=== PATIENT | male | born 1970 | race Caucasian/White ===

== ENCOUNTER 2017-01-26 15:23 | Emergency (ER) | payer OTHER ==
[2017-01-26 15:27] VITALS: BP 170/97; PULSE 101; RESP 20; TEMP 98.1
[2017-01-26] MEDS ORDERED: ORPHENADRINE 30 MG/ML 2 ML VIAL IM STA (16:00)
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
== END 2017-01-26 16:42 | disposition home or self-care (01) ==
LOC: EC 15:23
DX: G89.29 Other chronic pain (principal); M54.5 Low back pain; I10 Essential (primary) hypertension; F41.9 Anxiety disorder, unspecified; F32.9 Major depressive disorder, single episode, unspecified; Z87.891 Personal history of nicotine dependence; Z79.899 Other long term (current) drug therapy; Z88.6 Allergy status to analgesic agent
CPT/HCPCS: 99283 ×2; 96372 ×2; J2360

== ENCOUNTER 2017-01-27 17:26 | Emergency (ER) | payer OTHER ==
[2017-01-27 17:37] VITALS: BP 157/88; PULSE 68; RESP 20; TEMP 98.1
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
[2017-01-27] MEDS ORDERED: ORPHENADRINE 30 MG/ML 2 ML VIAL IM STA ×2 (17:59→18:04)
== END 2017-01-27 18:17 | disposition home or self-care (01) ==
LOC: EC 17:26
DX: G89.29 Other chronic pain (principal); M54.9 Dorsalgia, unspecified; I10 Essential (primary) hypertension; M19.90 Unspecified osteoarthritis, unspecified site; F32.9 Major depressive disorder, single episode, unspecified; F41.9 Anxiety disorder, unspecified; Z87.891 Personal history of nicotine dependence; Z79.899 Other long term (current) drug therapy; Z88.6 Allergy status to analgesic agent; Z98.890 Other specified postprocedural states
CPT/HCPCS: 99283 ×2; 96372 ×2; J2360

== ENCOUNTER 2017-02-08 10:07 | Day surgery (SDC) | payer OTHER ==
[2017-01-02 09:52] VITALS: BMI 22.1
[~2017-02-08 10:07] MED LIST: LACTATED RINGERS 1,000 ML IV SCH
[2017-02-08 12:00] VITALS: RESP 16; TEMP 97.9
[2017-02-08] MEDS ORDERED: LIDOCAINE 1% 20 ML VIAL (10MG/ML) FOR IV START INTRADERMA ONE (12:15)
[2017-02-08] MEDS ORDERED: TRIAMCINOLONE ACETONIDE 40 MG/ML 1 ML VIAL ONE (12:49)
[2017-02-08] MEDS ORDERED: MIDAZOLAM 2 MG/2 ML VIAL ONE (12:49)
[2017-02-08] MEDS ORDERED: fentaNYL (PF) 50 MCG/ML 2 ML AMP ONE (12:49)
[2017-02-08] MEDS ORDERED: IOHEXOL 180 MG/ML 1 ML ML ONE (12:49)
--- NOTE | 2017-02-08 13:04 | P.PCN ---
Date of Procedure: 02/08/17 Procedure(s) Performed: PREOPERATIVE DIAGNOSIS: 1- Lumbar Degenerative Disc Diseases 2-Lumbar spondylosis with Facet arthropathy without myelopathy POSTOPERATIVE DIAGNOSIS: 1-Lumber Degenerative Disc Diseases 2-Lumbar spondylosis with Facet arthropathy without myelopathy PROCEDURE 1. Lumbar epidural steroid injection under fluoroscopic guidance at the L4-5 level. (Left paramedian approach) 2. Lumbar epidurogram. ANESTHESIA: Local with 1% lidocaine 3 ml and IV sedation with Versed 2 mg , and fentanyle 50 Mcg EBL: Minimal PROCEDURE INDICATION: The patient with low back pain and radiculitis symptoms unresponsive to conservative treatment. Fluoroscopy was used to optimize visualization of the needle placement and to maximize safety. PROCEDURE DESCRIPTION / TECHNIQUE: The patient was seen and identified in the preoperative area. Risks, benefits , complications including but not limited to infections ,bleeding ,allergic reaction to the medications ,nerve damage and not complete pain releife , and alternatives were discussed with the patient. The patient agreed to proceed with the procedure and signed the consent. IV was started, and vital signs were stable. Patient was taken to the OR and time out was completed. The patient was placed in the prone position on procedure table and a pillow was placed under the abdomen to reduce lumbar lordosis. The lumbosacral area was prepped and draped in the usual sterile fashion.ere closely monitored during the procedure. Conscious sedation was used during the procedure to decrease patients anxiety. Vital signs was monitered during the entire procedure. Using anterior-posterior fluoroscopy, the L4-5 interlaminar space was identified and the skin over this site was marked and then infiltrated with 1% lidocaine subcutaneously. Subsequently, a 20-gauge Tuohy epidural needle was inserted and advanced toward the epidural space using the ``Loss of resistance technique and guided by AP and lateral fluoroscopy. The correct needle position in the epidural space was verified with the injection of 2 mL of the water soluble contrast dye Omnipaque 180 contrast and observing an excellent epidurogram with the epidural spread of the dye, after negative aspiration for blood and CSF and in the absence of paresthesias. Again after negative aspiration, a 6 ml mixture containing 80 mg of Kenalog and 2 ml of preservative free Normal Saline, and 2 ml of preservative free lidocaine 1% solution was injected and a washout of epidurogram was seen. Needle was withdrawn intact, skin was cleansed, and bandages were applied. COMPLICATIONS: None DISPOSITION / PLANS: The patient was placed in a supine position and transferred to the recovery area in a stable condition for observation. There was no evidence of lower extremity motor or sensory deficit after the procedure. Patient was discharged from the recovery room after meeting discharge criteria. Home discharge instructions were given to the patient by the staff. The patient was reexamined prior to discharge. The patient will schedule a follow up in the clinic in 2-4 weeks.
[2017-02-08] MEDS ORDERED: IV FLUID CONTINUATION 1,000 ML IV ONE (13:11)
--- NOTE | 2017-02-08 13:17 | FL ---
EXAMINATION TYPE: FL guided pain mgmt statistic DATE OF EXAM: 02/08/2017 1:10 PM CLINICAL HISTORY: Low back pain. TECHNIQUE: Fluoroscopy. COMPARISON: None. FINDINGS: Fluoroscopic guidance was provided during pain relief procedure performed by Dr. Crevantes . A total of 1 seconds of fluoroscopic time was utilized during the procedure and 1 spot image is a cquired. Single Image acquired shows needle localization at L4-L5 epidural space. IMPRESSION: As Above.
[2017-02-08 13:36] VITALS: BP 110/71; PULSE 64
== END 2017-02-08 13:42 | disposition home or self-care (01) ==
LOC: ORPAIN 10:07
PROVIDERS: ATTEND Specialist
DX: M51.16 Intervertebral disc disorders with radiculopathy, lumbar region (principal); M47.26 Other spondylosis with radiculopathy, lumbar region; M46.96 Unspecified inflammatory spondylopathy, lumbar region
CPT/HCPCS: 62323; J2250; J3301; Q9965; J3010

== ENCOUNTER 2017-03-14 10:07 | Day surgery (SDC) | payer OTHER ==
[2017-03-12 12:54] VITALS: BMI 22.1
[2017-03-14 10:27] VITALS: TEMP 98
[2017-03-14] MEDS ORDERED: LACTATED RINGERS 1,000 ML IV ONE (10:31)
[2017-03-14] MEDS ORDERED: LIDOCAINE 1% 20 ML VIAL (10MG/ML) FOR IV START INTRADERMA ONE (10:31)
[2017-03-14] MEDS ORDERED: TRIAMCINOLONE ACETONIDE 40 MG/ML 1 ML VIAL ONE (10:47)
[2017-03-14] MEDS ORDERED: BUPIVACAINE (PF) 0.25% 30 ML VIAL ONE (10:47)
[2017-03-14] MEDS ORDERED: IOHEXOL 180 MG/ML 1 ML ML ONE (10:47)
[2017-03-14] MEDS ORDERED: MIDAZOLAM 2 MG/2 ML VIAL ONE (10:47)
[2017-03-14] MEDS ORDERED: fentaNYL (PF) 50 MCG/ML 2 ML AMP ONE (10:47)
--- NOTE | 2017-03-14 11:05 | P.PCN ---
Date of Procedure: 03/14/17 Preoperative Diagnosis: Lumbar radiculopathy Postoperative Diagnosis: Same as above Procedure(s) Performed: Lumbar epidural steroid injection under fluoroscopic guidance Anesthesia: other (Moderate sedation with IV fentanyl and Versed) Surgeon: Shannon Cloud Pathology: none sent Condition: stable Disposition: PACU Description of Procedure: The patient was seen in preop holding area consent was obtained then he was brought into the procedure room and placed in prone position. Skin was prepped with Betadine 3 and draped in a sterile manner. Lidocaine 1% was used to numb the skin up at the target point that was at the L4 5 level in the right paramedian approach. I used 20-gauge 3-1/2 inch Touhy epidural needle with loss -of-resistance to air to identify the epidural space. There was positive loss- of-resistance to air at about 5 cm from skin negative aspiration for any CSF or blood negative paresthesia. I then injected 2 MLS of Omnipaque which showed typical epidurogram with AP and lateral views of fluoroscopy. Then I injected 40 mg of Kenalog +2 MLS of Marcaine 0.25% +4 MLS of preservative free normal saline to a total volume of 7 MLS in epidural space. Patient tolerated procedure well.
[2017-03-14] MEDS ORDERED: IV FLUID CONTINUATION 700 ML IV ONE (11:10)
--- NOTE | 2017-03-14 11:54 | FL ---
Fluoroscopy INDICATION: Pain FINDINGS: Fluoroscopy time: 6 seconds. Images obtained: 2. IMPRESSIONS: 1. Documentation of fluoroscopy.
[2017-03-14 12:26] VITALS: PULSE 60; RESP 16
[2017-03-14 12:28] VITALS: BP 114/80
== END 2017-03-14 11:50 | disposition home or self-care (01) ==
LOC: ORPAIN 10:07
PROVIDERS: ATTEND Anesthesiology
DX: M54.16 Radiculopathy, lumbar region (principal); Z88.8 Allergy status to other drugs, medicaments and biological substances
CPT/HCPCS: 62323; 99152; J2250; J3301; Q9965; J3010

== ENCOUNTER → 2017-05-08 | Outpatient (CLI) | payer OTHER ==
[2017-05-08 12:24] VITALS: BP 144/90; PULSE 69; RESP 20; TEMP 98.1
--- NOTE | 2017-05-08 13:07 | P.PN ---
Subjective This is follow-up visit for this 47 years old male with a history of chronic low back pain diagnosed with lumbar degenerative disc disease and lumbar spondylosis, essentially with a lumbar epidural steroid injection patient had good pain relief, currently he is complaining of severe neck pain and headache , he had MRI of the cervical spine done more than a year ago and it showed that C5 6 bulging disc disease, he denies any motor or sensory deficits but he reported that his neck pain interfering with his quality of life, and associated with severe headache, he denies any numbness or tingling sensation in the upper or lower extremities, he denies any change in the formal motor , no fever or night sweats, he use ultram 100 mg 3 times a day. He denies any side effect of the medication Objective - Vital Signs Vital signs: Vital Signs Temp 98.1 F 05/08/17 12:16 Pulse 69 05/08/17 12:16 Resp 20 05/08/17 12:16 BP 144/90 05/08/17 12:16 Pulse Ox 99 05/08/17 12:16 Intake & Output 05/07/17 05/08/17 05/08/17 18:59 06:59 18:59 Weight 67.132 kg - Exam Physical Examinations : 1-Constitutiona : Cooperative , not in acute distress . 2-HEENT : nech ; supple , no Lymphadenopathy , normal thyroid size . eyes : no ptosis , no icterus, no photophobia . ENT : normal of hearing , normal oropharynx , no Thrush . 3- Respiratory : Chest clear to auscultations Bilaterally , no wheezing , no Rhonchi . 4- Cardiovascular : regular rate and rhythem , S1 , S2 , no S3 , no S4. 5- Gastrointestinal : abdomen soft no tenderness , bowel sounds positive all four quadrents , no organomegally . 6- Genitourinary : Defferred . 7- neurologic : Cranial nerve II to XII intact , no focal neurological deffecit . 8-psychatric : alert , oriented X 3 , appropriate affect , intact judgment and insight . 9-Lymphatic : no Lymphadenopathy . 10- musculoskeltal : cervical spine = motor stregnth in the deltoid and biceps, motor stregnth biceps and the wrist extensors (C6) . motor stregnth in the triceps muscle . deep tendon reflexes normal at the biceps , l normal at Brachioradialis normal at the triceps positive cervical facet loading test . , Normal sensation in the upper extremity Lumber spine = normal moter stegnth lower extremities ,thigh and legs .03/23 Assessment and Plan Plan: Assessment and plan= chronic low back pain secondary to lumbar degenerative disc disease , lumbar spondylosis with lumbar facet arthropathy Neck pain secondary to cervical degenerative disc disease, and patient had clinical finding of cervical spondylosis with cervical facet arthropathy Patient had old MRI , it showed cervical bulging disc disease at C5 6 and C6 7, patient already scheduled to have MRI of the cervical spine by the end of the month, we will review the MRI report when it is available, patient will follow up in the pain clinic in a few weeks, discussed the results of the MRI report Patient should continue his current pain medication Ultram 100 mg every 4-6 hours when necessary,he is getting prescription refill from Dr. Lewis Time with Patient: Less than 30
== END ==
LOC: PNWHC3 11:57
PROVIDERS: ATTEND Specialist
DX: M51.36 Other intervertebral disc degeneration, lumbar region (principal); M47.816 Spondylosis without myelopathy or radiculopathy, lumbar region; M46.86 Other specified inflammatory spondylopathies, lumbar region; M50.30 Other cervical disc degeneration, unspecified cervical region; M47.812 Spondylosis without myelopathy or radiculopathy, cervical region; M46.82 Other specified inflammatory spondylopathies, cervical region; M50.222 Other cervical disc displacement at C5-C6 level
CPT/HCPCS: 99211

== ENCOUNTER → 2017-05-15 | Outpatient (CLI) | payer OTHER ==
--- NOTE | 2017-05-15 23:29 | MR ---
EXAMINATION TYPE: MR cervical spine wo con DATE OF EXAM: 05/15/2017 COMPARISON: 07/22/2014 HISTORY: 47-year-old male with neck pain for 12 months, cervicalgia. TECHNIQUE: Multiplanar, multisequence images of the cervical spine were acquired. FINDINGS: No craniocervical junction abnormality, predental space widening, or prevertebral soft tissue swellin g. Straightening of the upper cervical lordosis but with preserved alignment. No suspicious bone marrow replacement. There is mild multilevel disc desiccation and posterior disc bulging. The disc desiccation appears to have slightly progressed from 2013 this 70 posterior disc bulges are similar. Ligamentum flavum thickening in the mid to lower cervical spine appears to have increased. Additional scattered facet and uncovertebral joint arthropathy is present. At C2-C3, no significant canal or foraminal stenosis. At C3-C4, mild facet arthropathy and mild right-sided uncovertebral joint degenerative change. This m ildly narrows the right-sided neuroforamen. No significant spinal canal stenosis. At C4-C5, mild broad-based posterior disc bulge with contiguous uncovertebral joint degenerative mckeon ge and facet arthropathy. This minimally narrows the bilateral neuroforamina and contributes to a mil d narrowing of the spinal canal that may be minimally increased. No significant cord contact or cord deformity here. At C5-C6, left paracentral disc osteophyte complex with contiguous uncovertebral joint arthropathy. B ilateral facet arthropathy is also present. Changes result in [id number] left neuroforaminal s tenosis and mild narrowing of the spinal canal similar to slightly accentuated due to minimally incre ased ligamentum flavum thickening. At C6-C7, mild posterior bulging disc and mild ligamentum flavum thickening. Additional mild facet an d uncovertebral joint degenerative change. This minimally narrows the bilateral neuroforamen and mini kanika impresses onto the thecal sac without significant spinal canal stenosis. At C7-T1, there is facet degenerative change minimally narrowing the right-sided neuroforamen. No spi nal canal stenosis. There are artifacts projecting over the cord due to motion without definite cord signal abnormality. No prevertebral or paravertebral soft tissue abnormality. IMPRESSION: 1. Mild to moderate multilevel degenerative disc disease shows some progressive disc desiccation from 2013. 2. Mild narrowing of the spinal canal at C4-C5 and C5-C6 may be minimally increased due to the presen ce of small disc osteophyte complexes/disc bulges and slight increasing thickening of the ligamentum flavum. No canal compromise or cord compression. 3. Additional scattered facet and uncovertebral joint arthropathy. The greatest narrowing is mild to moderate on the left at C5-C6.
== END | disposition home or self-care (01) ==
LOC: RADMRIMAIN 21:09
PROVIDERS: ATTEND Family Medicine
DX: M48.02 Spinal stenosis, cervical region (principal); M50.30 Other cervical disc degeneration, unspecified cervical region; M46.82 Other specified inflammatory spondylopathies, cervical region; M24.28 Disorder of ligament, vertebrae
CPT/HCPCS: 72141

== ENCOUNTER → 2017-06-19 | Outpatient (CLI) | payer OTHER ==
[2017-06-19 14:34] VITALS: BP 119/83; PULSE 98; RESP 18
--- NOTE | 2017-06-19 14:49 | P.PN ---
Progress Note - Text This is a 47-year-old male with neck pain due to cervical spondylosis. The pain is in both side of his neck left is more intense than the right side pain however the pain does not radiate down the arms occasionally he feels some tingling in the arms but it is not a constant complaint. Most of his pain is in the lower neck area and occasionally gets headaches. The patient's pain got worse after a chiropractor manipulation a few days ago with stiffness in his upper back muscles. I told the patient that most likely his muscle stiffness will get better over the next week or so. In regards to his axial neck pain I will schedule him to have cervical medial branch block on the C 5,6 and 7 levels bilaterally under fluoroscopic guidance. The patient is to continue using tramadol that he gets from Dr. Lewis.
== END ==
LOC: PNWHC3 14:17
PROVIDERS: ATTEND Anesthesiology
DX: M48.02 Spinal stenosis, cervical region (principal); M50.30 Other cervical disc degeneration, unspecified cervical region; M47.812 Spondylosis without myelopathy or radiculopathy, cervical region; M46.82 Other specified inflammatory spondylopathies, cervical region
CPT/HCPCS: 99211

== ENCOUNTER 2017-07-12 10:07 | Day surgery (SDC) | payer OTHER ==
[2017-07-11 09:14] VITALS: BMI 21.9
[2017-07-12] MEDS ORDERED: LIDOCAINE 1% 20 ML VIAL (10MG/ML) FOR IV START INTRADERMA ONE (10:13)
[2017-07-12 10:20] VITALS: RESP 16; TEMP 97.9
[2017-07-12] MEDS ORDERED: IV FLUID CONTINUATION 1,000 ML IV ONE (11:05)
--- NOTE | 2017-07-12 11:13 | P.PCN ---
Date of Procedure: 07/12/17 Preoperative Diagnosis: Postoperative Diagnosis: Procedure(s) Performed: PREOPERATIVE DIAGNOSIS: Cervical Spondylosis with Facet Arthropathy.without myelopathy POSTOPERATIVE DIAGNOSIS: Cervical Spondylosis Facet Arthropathy. Without myelopathy PROCEDURES: Diagnostic Bilateral. C5,6,7 medial branchs block with fluoroscopic guidance ANESTHESIA: Local with 1% lidocaine; IV sedation with Versed. EBL: Minimal PROCEDURE INDICATION: The patient with neck pain secondary to cervical arthropathy unresponsive to more conservative treatments. PROCEDURE DESCRIPTION / TECHNIQUE: The patient was seen and identified in the preoperative area. Risks, benefits, complications, and alternatives were discussed with the patient, the patient agreed to proceed with the procedure and signed the consent. IV was started. Vital signs remained stable throughout the procedure. Patient was taken to the OR and time out was completed. The patient was placed in the supine position on the procedure table. . The cervical area was prepped with chloraprep and draped in the usual sterile fashion. Critical pause was taken. Vital signs were closely monitored during the procedure. Conscious sedation was used during the procedure to decrease patients anxiety. Using cross-table lateral fluoroscopy, the centroid of the trapezoid of C5 , C6 and the superior articular proceess of C7, was identified, marked, and localized with 1% lidocaine 1 ml at each level for skin and Sub Q infiltrations . Subsequently, a 25 G 3.5 inch spinal needle was advanced guided by fluoroscopy to the centroid of the trapezoid of C5, C6 ,and the superior articular proceess of C7 . Subsequently, 3 ml of preservative-free Bupivacaine 0.5% mixed with Dexamethasone 10 mg and half ml of the mixture was injected at each level after negative aspiration for blood and CSF. Timpson were then removed intact the same procedure was repeated at the left C4-5, C5-6 , C5-6, and C6-7 levels. COMPLICATIONS: No acute complications. COMMENTS: DISPOSITION / PLANS: The patient was placed in a supine position and transferred to the recovery area in a stable condition for observation and was discharged from the recovery room after meeting discharge criteria. Home discharge instructions given to the patient by the staff. The patient was reexamined prior to discharge. The patient will schedule a follow up in the clinic in 2-4 weeks. Implants: Indications for Procedure: Operative Findings: Description of Procedure:
[2017-07-12 11:22] VITALS: BP 134/91; PULSE 54
--- NOTE | 2017-07-12 11:45 | FL ---
Fluoroscopy History: ANIA CERV RADIO FREQ WITH STEROID Dr. Cloud supervised use of ingrid for a ania cerv radio freq with steroid. 25 secs and 4 paper images
== END 2017-07-12 11:37 | disposition home or self-care (01) ==
LOC: ORPAIN 10:07
DX: M47.812 Spondylosis without myelopathy or radiculopathy, cervical region (principal); M46.92 Unspecified inflammatory spondylopathy, cervical region
CPT/HCPCS: 64490; 64491; 64492; 99152; 99153; J2250; J1100; J3010

== ENCOUNTER 2017-08-13 08:07 | Day surgery (SDC) | payer OTHER ==
[2017-08-13 08:55] VITALS: TEMP 97.8
[2017-08-13] MEDS ORDERED: LIDOCAINE 1% 20 ML VIAL (10MG/ML) FOR IV START INTRADERMA ONE (08:59)
[2017-08-13] MEDS ORDERED: LACTATED RINGERS 1,000 ML IV SCH (09:00)
--- NOTE | 2017-08-13 10:06 | P.PCN ---
Date of Procedure: 08/13/17 Surgeon: Fermin Tabares Pathology: none sent Condition: stable Disposition: PACU Description of Procedure: PREOPERATIVE DIAGNOSIS: Cervical spondylosis without myelopathy, cervicogenic headache. POSTOPERATIVE DIAGNOSIS: same PROCEDURES: Diagnostic bilateral C4, C5, C6, C7 medial branch steroid injection , with fluoroscopic guidance ANESTHESIA: Local with 1% lidocaine; conscious sedation EBL: Minimal PROCEDURE INDICATION: This is a patient with neck pain and headaches secondary to cervical arthropathy unresponsive to more conservative treatments. 2-3 weeks ' relief from first CMBB C5-C7 bilateral #1. No use of blood thinners. PROCEDURE DESCRIPTION / TECHNIQUE: The patient was seen and identified in the preoperative area. Risks, benefits, complications, and alternatives were discussed with the patient (including but not limited to incomplete pain relief , bleeding, infection, nerve damage, and allergies to medications), the patient agreed to proceed with the procedure and signed the consent after all questions were answered. IV was started. Vital signs remained stable throughout the procedure. Patient was taken to the OR and time out was completed. The patient was placed in the prone position on the procedure table. A pillow was placed under the patients chest to increase the cervical interlaminar space. The cervical area was prepped and draped in the usual sterile fashion. Critical pause was taken. Vital signs were closely monitored during the procedure. Conscious sedation was used during the procedure to decrease patients anxiety. Using cross-table lateral fluoroscopy, the centroid of the trapezoid of right C4 , was identified, marked, and localized with 1% lidocaine. Subsequently, a 22 G 3.5-inch spinal needle was advanced guided by fluoroscopy to the centroid of the trapezoid of C4. Needle tip position was confirmed at the centroid of the trapezoids of C4 with anteroposterior fluoroscopy. Subsequently, 1 ml of a combination of 10 mg Decadron and 7 ml of preservative-free Bupivacaine 0.5% was injected after negative aspiration for blood and CSF. Needle was then removed intact the same procedure was repeated at the right C5, C6, C7 and left , C4, C5, C6, C7 levels. COMPLICATIONS: No acute complications. COMMENTS: DISPOSITION / PLANS: The patient was placed in a supine position and transferred to the recovery area in a stable condition for observation and was discharged from the recovery room after meeting discharge criteria. Home discharge instructions given to the patient by the staff. The patient was reexamined prior to discharge and he already had significant relief. The patient will schedule a right vs. left cervical RFA (C5, C6, C7 medial branches ) at next visit.
[2017-08-13 10:13] VITALS: RESP 18
[2017-08-13] MEDS ORDERED: IV FLUID CONTINUATION 600 ML IV ONE (10:14)
--- NOTE | 2017-08-13 10:14 | FL ---
Fluoroscopy History: ANIA CERVICAL FACET BLOC ANIA CERVICAL FACET BLOCK. 17 SEC FL TIME. 3 IMAGES SCANNED
[2017-08-13 10:26] VITALS: BP 126/88; PULSE 49
== END 2017-08-13 10:48 | disposition home or self-care (01) ==
LOC: ORPAIN 08:07
PROVIDERS: ATTEND Anesthesiology
DX: G89.29 Other chronic pain (principal); M47.812 Spondylosis without myelopathy or radiculopathy, cervical region; R51 Headache; I10 Essential (primary) hypertension; F32.9 Major depressive disorder, single episode, unspecified; Z79.891 Long term (current) use of opiate analgesic; Z79.899 Other long term (current) drug therapy; Z88.6 Allergy status to analgesic agent
CPT/HCPCS: 64490; 64491; 64492; 99152; J2250; J1100; J3010; 99153

== ENCOUNTER 2017-09-05 07:56 | Day surgery (SDC) | payer OTHER ==
[2017-08-31 15:05] VITALS: BMI 21.9
[2017-09-05 08:11] VITALS: TEMP 97.3
[2017-09-05] MEDS ORDERED: LIDOCAINE 1% 20 ML VIAL (10MG/ML) FOR IV START INTRADERMA ONE (08:12)
--- NOTE | 2017-09-05 09:49 | P.PCN ---
Date of Procedure: 09/05/17 Procedure(s) Performed: PREOPERATIVE DIAGNOSIS:1- Cervical spondylosis with Facet Arthropathy without myelopathy. 2-cervical genic headache POSTOPERATIVE DIAGNOSIS: Same as preop diagnosis PROCEDURES: Radiofrequency thermocoagulation, left C4, C5, C6 medial branch with Fluroscopy Guidence ( 3 levels ) ANESTHESIA: Local with 1% lidocaine 6 ml ; IV sedation with fentanyl 100 mcg , and Versed 2 mg . EBL: Minimal PROCEDURE INDICATION: The patient with neck pain secondary to cervical arthropathy who had more than 50% relief of her pain with previous diagnostic cervical medial branch block. PROCEDURE DESCRIPTION / TECHNIQUE: The patient was seen and identified in the preoperative area. Risks, benefits, complications, and alternatives were discussed with the patient, the patient agreed to proceed with the procedure and signed the consent. IV was started. Vital signs remained stable throughout the procedure. Patient was taken to the OR and time out was completed. The patient was placed in the prone position on the procedure table. A pillow was placed under the patients chest to increase the cervical interlaminar space. The cervical area was prepped and draped in the usual sterile fashion. Critical pause was taken. Vital signs were closely monitored during the procedure. Conscious sedation was used during the procedure to decrease patients anxiety. Using cross-table lateral fluoroscopy, the centroid of the trapezoid of left C4 , C5, and C6 were identified, marked, and localized with 1% lidocaine. Subsequently, a 20 [id number] radiofrequency cannula with a 10-mm active tip was advanced guided by fluoroscopy to the centroid of the trapezoid of left C4 , C5, and C6 . Needle tip position was confirmed at the centroid of the trapezoids of the left C4, C5, and C6 with anteroposterior fluoroscopy. Each site then underwent sensory testing at 50 Hz and 0 to 1 volt and motor testing at 2 Hz and 0 to 3 volt with local stimulation, but no radicular symptoms down the arm. Thereafter the left C4, C5 and C6 sites underwent radiofrequency thermocoagulation at 80 degrees celsius for 90 seconds after injecting 0.5 ml of PF lidocaine 1%. After thermocoagulation, 1 ml of the block solution containing Kenalog 40 mg and 3 mL of preservative-free normal saline was injected at the left C4, C5, and C6 levels after negative aspiration of CSF and blood and with no paresthesias. Cannulas were retracted while injecting lidocaine 1% until the needle is out. Skin was cleansed and bandages were applied. COMPLICATIONS: No acute complications. COMMENTS:( the patient had diagnostic medial branch block on C4/C5/C6/C7 , and the plan was to do the radiofrequency at all these levels mentioned, but I could not visualize the C7 vertebra because of the shadow of the shoulder was blocking the view, for this reason I did only the left side C4/C5/C6 , 3 levels ) DISPOSITION / PLANS: The patient was placed in a supine position and transferred to the recovery area in a stable condition for observation and was discharged from the recovery room after meeting discharge criteria. Home discharge instructions given to the patient by the staff. The patient was reexamined prior to discharge. The patient will schedule a follow up in the clinic in 2-4 weeks.
--- NOTE | 2017-09-05 09:57 | FL ---
EXAMINATION TYPE: FL guided pain mgmt statistic DATE OF EXAM: 09/05/2017 COMPARISON: NONE HISTORY: Neck pain TECHNIQUE: Fluoroscopy. FINDINGS/IMPRESSION: Fluoroscopic guidance was provided during procedure performed by Dr. Cervantes. A total of 24 seconds of fluoroscopic time was utilized during the procedure and 2 spot images was a cquired.
[2017-09-05 10:18] VITALS: BP 140/82; PULSE 72; RESP 18
[2017-09-05] MEDS ORDERED: IV FLUID CONTINUATION 1,000 ML IV ONE (10:19)
== END 2017-09-05 10:50 | disposition home or self-care (01) ==
LOC: ORPAIN 07:56
PROVIDERS: ATTEND Specialist
DX: M46.92 Unspecified inflammatory spondylopathy, cervical region (principal); M47.812 Spondylosis without myelopathy or radiculopathy, cervical region; G44.89 Other headache syndrome; Z88.6 Allergy status to analgesic agent
CPT/HCPCS: 64633; 64634 ×2; 99152; 99153; J2250; J3301; J3010

== ENCOUNTER 2017-10-04 06:16 | Day surgery (SDC) | payer OTHER ==
[2017-10-04] MEDS ORDERED: LACTATED RINGERS 1,000 ML IV ONE (06:45)
[2017-10-04] MEDS ORDERED: LIDOCAINE 1% 20 ML VIAL (10MG/ML) FOR IV START INTRADERMA ONE (07:15)
[2017-10-04 07:19] VITALS: RESP 18; TEMP 97.8
--- NOTE | 2017-10-04 08:08 | P.PCN ---
Date of Procedure: 10/04/17 Procedure(s) Performed: PREOPERATIVE DIAGNOSIS: 1-Cervical spondylosis with Facet Arthropathy without myelopathy. 2-cervicogenic headache POSTOPERATIVE DIAGNOSIS: Same as preoperative diagnosis. PROCEDURES: Radiofrequency thermocoagulation, right C4, C5, C6 medial branch with Fluroscopy Guidence ANESTHESIA: Local with 1% lidocaine; IV sedation with fentanyl 100 mcg and Versed. 2 mg EBL: Minimal PROCEDURE INDICATION: The patient with neck pain secondary to cervical arthropathy who had more than 50% relief of her pain with previous diagnostic cervical medial branch block. PROCEDURE DESCRIPTION / TECHNIQUE: The patient was seen and identified in the preoperative area. Risks, benefits, complications, and alternatives were discussed with the patient, the patient agreed to proceed with the procedure and signed the consent. IV was started. Vital signs remained stable throughout the procedure. Patient was taken to the OR and time out was completed. The patient was placed in the prone position on the procedure table. A pillow was placed under the patients chest to increase the cervical interlaminar space. The cervical area was prepped and draped in the usual sterile fashion. Critical pause was taken. Vital signs were closely monitored during the procedure. Conscious sedation was used during the procedure to decrease patients anxiety. Using cross-table lateral fluoroscopy, the centroid of the trapezoid of right C4, C5, and C6 were identified, marked, and localized with 1% lidocaine. Subsequently, a 20 [id number] radiofrequency cannula with a 10-mm active tip was advanced guided by fluoroscopy to the centroid of the trapezoid of right C4 , C5, and C6 . Needle tip position was confirmed at the centroid of the trapezoids of right C4, C5, and C6 with anteroposterior fluoroscopy. Each site then underwent sensory testing at 50 Hz and 0 to 1 volt and motor testing at 2 Hz and 0 to 3 volt with local stimulation, but no radicular symptoms down the arm. Thereafter right C4,C5 and C6 sites underwent radiofrequency thermocoagulation at 80 degrees celsius for 90 seconds after injecting 0.5 ml of PF lidocaine 1%. After thermocoagulation, 1 ml of the block solution containing Kenalog 40 mg and 5 mL of preservative-free normal saline was injected at the right C4, C5, and C6 levels after negative aspiration of CSF and blood and with no paresthesias. Cannulas were retracted while injecting lidocaine 1% until the needle is out. Skin was cleansed and bandages were applied. COMPLICATIONS: No acute complications. DISPOSITION / PLANS: The patient was placed in a supine position and transferred to the recovery area in a stable condition for observation and was discharged from the recovery room after meeting discharge criteria. Home discharge instructions given to the patient by the staff. The patient was reexamined prior to discharge. The patient will schedule a follow up in the clinic in 2-4 weeks.
[2017-10-04] MEDS ORDERED: IV FLUID CONTINUATION 1,000 ML IV ONE (08:11)
[2017-10-04 08:30] VITALS: BP 143/85; PULSE 55
--- NOTE | 2017-10-04 09:24 | FL ---
Fluoroscopy HISTORY: Pain 15 seconds fluoroscopy time supplied to the referring clinician. 2 intraoperative C-arm images docum ent the procedure. See dictated report from anesthesia.
== END 2017-10-04 08:34 | disposition home or self-care (01) ==
LOC: ORPAIN 06:16
PROVIDERS: ATTEND Specialist
DX: M46.92 Unspecified inflammatory spondylopathy, cervical region (principal); M47.812 Spondylosis without myelopathy or radiculopathy, cervical region; Z88.6 Allergy status to analgesic agent
CPT/HCPCS: 64633; 64634 ×2; J2250; J3301; J3010; 99152; 99153

== ENCOUNTER → 2017-12-27 | Outpatient (CLI) | payer OTHER ==
[2017-12-27 14:23] VITALS: BP 167/103; PULSE 61; RESP 18
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
== END | disposition home or self-care (01) ==
LOC: PNWHC3 13:31
PROVIDERS: ATTEND Specialist
DX: M47.812 Spondylosis without myelopathy or radiculopathy, cervical region (principal); M46.82 Other specified inflammatory spondylopathies, cervical region; M54.2 Cervicalgia; M79.1 Myalgia; F41.9 Anxiety disorder, unspecified; F32.9 Major depressive disorder, single episode, unspecified; I10 Essential (primary) hypertension; Z87.891 Personal history of nicotine dependence; Z79.891 Long term (current) use of opiate analgesic; Z88.6 Allergy status to analgesic agent; Z98.890 Other specified postprocedural states; Z79.899 Other long term (current) drug therapy
CPT/HCPCS: 99211

== ENCOUNTER 2018-01-23 06:22 | Day surgery (SDC) | payer OTHER ==
[2018-01-21 10:23] VITALS: BMI 21.4
[2018-01-23 07:19] VITALS: TEMP 97.1
[2018-01-23] MEDS ORDERED: LIDOCAINE 1% 20 ML VIAL (10MG/ML) FOR IV START INTRADERMA ONE (07:22)
[2018-01-23] MEDS ORDERED: IV FLUID CONTINUATION 1,000 ML IV ONE ×2 (07:53)
--- NOTE | 2018-01-23 07:53 | P.PCN ---
Date of Procedure: 01/23/18 Procedure(s) Performed: Preoperative diagnoses= 1-myofascial pain syndrome cervical and thoracic area. 2-cervical spondylosis with cervical facet arthropathy without myelopathy Postoperative diagnoses= same as preoperative diagnosis. Procedure= trigger point injections and cervical paravertebral muscles 3 on the right side and 2 on the left side cervical paravertebral muscles,, and 2 on the right side thoracic paravertebral muscles, and 1 on the side, thoracic paravertebral muscles , total of 8 trigger points injected Anesthesia= moderate sedation with Versed 1 mg and fentanyl 50 micrograms . Estimated blood loss=minimal. Procedure indication= the patient had a history of severe chronic neck ,and upper back pain, diagnosed with myofascial pain syndrome cervical and thoracic area and cervical spondylosis with facet arthropathy unresponsive to conservative treatment. Procedure description= the patient was seen and identified in the preoperative holding area, risks and benefits and alternative of the procedure and possible complications discussed with the patient, and he agreed with the preceding, patient signed the consent, an IV was started, and vital signs were monitored and were stable throughout the procedure, patient was placed in the prone position or table and the neck and the thoracic area was prepped and draped with a sterile fashion, vital signs were closely monitored during the procedure , and each of the trigger point that was marked in the preop holding area each of the trigger point injected with the 2 mL of the mixture of Marcaine 0.75% 16 mL was mixed with 40 mg of Kenalog and 2 ML of the mixture was injected at each trigger point after negative aspiration, a total of 8 trigger points injected in the cervical paravertebral muscles and thoracic paravertebral muscles , using 25-gauge needle , ejection after negative aspiration for heme and there was no paresthesia during the injection ,needle removed, Patient tolerated the procedure well without any complication, The procedure area was cleaned and a Band-Aid applied, the patient transported to recovery room in stable condition and he was monitored for 30 minutes before he was discharged home and then patient was reexamined before going home and patient was discharged in stable condition and patient will follow up with the pain clinic in a few weeks
[2018-01-23] MEDS ORDERED: ENALAPRILAT 1.25 MG/ML 1 ML VIAL IVP ONE (08:28)
[2018-01-23 09:03] VITALS: BP 146/97; PULSE 60; RESP 16
== END 2018-01-23 09:05 | disposition home or self-care (01) ==
LOC: ORPAIN 06:22
PROVIDERS: ATTEND Specialist
DX: M79.1 Myalgia (principal); M47.812 Spondylosis without myelopathy or radiculopathy, cervical region; G89.29 Other chronic pain; I10 Essential (primary) hypertension; Z88.6 Allergy status to analgesic agent
CPT/HCPCS: 20553; J2250; J3301; J3010

== ENCOUNTER → 2018-10-24 | Outpatient (CLI) | payer OTHER ==
[2018-10-24 11:27] VITALS: BP 123/82; PULSE 61; RESP 16
--- NOTE | 2018-10-24 11:39 | P.PN ---
Subjective Progress Note Date: 10/24/18 Principal diagnosis: Cervical spondylosis without myelopathy Renato is a 48-year-old gentleman who presents today with continued neck pain. He is status post radiofrequency ablation done earlier this year. He was also status post trigger point injections which offered him significant relief. He continues to have right-sided neck pain which is worse in the left. He reports pain along the cervical spine and along the medial border of his right-sided scapula. He reports that he also gets headaches occasionally. He reports that he sometimes has numbness and tingling going down his arm but no weakness. He reports the numbness tingling his on and off depending on position. He does not report any new signs or symptoms of weakness or any new numbness and tingling in his lower extremities. Denies any bowel or bladder incontinence or lower extremity weakness. He reports he does see a chiropractor weekly and reports that he feels better for about 1 day after going to the chiropractor. Objective - Vital Signs Vital signs: Intake & Output 10/23/18 10/24/18 10/24/18 18:59 06:59 18:59 Weight 68.039 kg - Exam General: Awake and alert oriented 3 no distress Respiratory exam: No audible wheezing no accessory muscle usage Cardiovascular exam: regular rate, palpable bilateral pulses, no lower extremity edema Abdominal exam: No distention nontender to palpation Cervical spine: Normal alignment, facet loading is positive, tenderness to palpation bilateral paraspinal muscles. Palpable triggerpoints noted. Lumbar spine: Loss of lumbar lordosis, normal alignment, tender to palpation over bilateral paraspinal muscles, facet loading is positive bilaterally. Straight leg raise is negative. Sacroiliac joints: Nontender to palpation, JC is negative, Gaenselon negative Neuro exam: Normal sensation in bilateral upper extremities, deep tendon reflexes are 2+ bilateral upper extremities. Normal sensation in bilateral lower extremities. Deep tendon reflexes are 2+ in lower extremities Psych exam: Cooperative, appropriate mood Assessment and Plan Assessment: #1 cervical spondylosis without myelopathy #2 myofascial pain syndrome #3 opioid dependence Plan: Plan is to repeat the cervical radiofrequency ablation on the right side. We will start and repeat the levels that were done previously at the level of C4, C5, and C6.
== END ==
LOC: PNWHC3 10:52
PROVIDERS: ATTEND Hospitalist
DX: M47.812 Spondylosis without myelopathy or radiculopathy, cervical region (principal); M79.18 Myalgia, other site; Z79.891 Long term (current) use of opiate analgesic
CPT/HCPCS: 99211

== ENCOUNTER 2018-11-20 06:54 | Day surgery (SDC) | payer OTHER ==
[2018-11-13 13:10] VITALS: BMI 22.1
[~2018-11-20 06:54] MED LIST changes: -LACTATED RINGERS 1,000 ML IV SCH; +SODIUM CHLORIDE 0.9% 500 ML 500 ML IV SCH
[2018-11-20 07:29] VITALS: TEMP 97.6
[2018-11-20] MEDS ORDERED: LACTATED RINGERS 1,000 ML IV ONE (07:29)
--- NOTE | 2018-11-20 08:49 | P.PCN ---
Date of Procedure: 11/20/18 Surgeon: Shannon Cloud Pathology: none sent Condition: stable Disposition: PACU Description of Procedure: PREOPERATIVE DIAGNOSIS: Cervical spondylosis with Facet Arthropathy without myelopathy. POSTOPERATIVE DIAGNOSIS: Cervical spondylosis with Facet Arthropathy without myelopathy. PROCEDURES: Right Radiofrequency thermocoagulation of C4,C5, C6 medial branch with Fluroscopy Guidence ANESTHESIA: Local with 1% lidocaine; IV sedation with fentanyl and Versed. EBL: Minimal PROCEDURE INDICATION: The patient with neck pain secondary to cervical arthropathy who had more than 50% relief of her pain with previous diagnostic cervical medial branch block. PROCEDURE DESCRIPTION / TECHNIQUE: The patient was seen and identified in the preoperative area. Risks, benefits, complications, and alternatives were discussed with the patient, the patient agreed to proceed with the procedure and signed the consent. IV was started. Vital signs remained stable throughout the procedure. Patient was taken to the OR and time out was completed. The patient was placed in the prone position on the procedure table. A pillow was placed under the patients chest to increase the cervical interlaminar space. The cervical area was prepped and draped in the usual sterile fashion. Critical pause was taken. Vital signs were closely monitored during the procedure. Conscious sedation was used during the procedure to decrease patients anxiety. Using cross-table lateral fluoroscopy, the center of the trapezoid-shaped cervical pillars of C4, C5, C6 were identified, marked, and localized with 1% lidocaine. Subsequently, a 20 -tr radiofrequency cannula with a 10-mm active tip was advanced guided by fluoroscopy to the target points mentioned above. . Each site then underwent motor testing at 2 Hz and 0 to 3 volt with local stimulation, but no radicular symptoms down the arm. Thereafter C4,C5 , and C6 sites underwent radiofrequency thermocoagulation at 80 degrees celsius for 90 seconds after injecting 0.5 ml of PF lidocaine 1%. After thermocoagulation, 1 ml of the block solution containing Dexamethasone 10 mg and 2 mL of preservative-free normal saline was injected at the C4,C5,C6, levels after negative aspiration of CSF and blood and with no paresthesias. Cannulas were retracted. Skin was cleansed and bandages were applied. COMPLICATIONS: No acute complications. COMMENTS: DISPOSITION / PLANS: The patient was placed in a supine position and transferred to the recovery area in a stable condition for observation and was discharged from the recovery room after meeting discharge criteria. Home discharge instructions given to the patient by the staff. The patient was reexamined prior to discharge.
[2018-11-20] MEDS ORDERED: IV FLUID CONTINUATION 1,000 ML IV ONE (08:52)
[2018-11-20 09:06] VITALS: RESP 18
[2018-11-20 09:14] VITALS: BP 131/89; PULSE 49
--- NOTE | 2018-11-20 09:56 | FL ---
EXAMINATION TYPE: FL guided pain mgmt statistic DATE OF EXAM: 11/20/2018 FLUOROSCOPY Fluoroscopy time of 23 seconds was used during cervical facet injections. 2 image/s document/s the p rocedure.
== END 2018-11-20 09:27 | disposition home or self-care (01) ==
LOC: ORPAIN 06:54
PROVIDERS: ATTEND Anesthesiology
DX: M47.812 Spondylosis without myelopathy or radiculopathy, cervical region (principal); Z88.6 Allergy status to analgesic agent
CPT/HCPCS: 64633; 64634; J2250; J1100; J3010; 99152; 99153

== ENCOUNTER 2018-12-02 06:20 | Day surgery (SDC) | payer OTHER ==
[2018-11-29 08:28] VITALS: BMI 22.7
[2018-12-02] MEDS ORDERED: LACTATED RINGERS 1,000 ML IV ONE (06:53)
[2018-12-02 06:55] VITALS: TEMP 97.5
--- NOTE | 2018-12-02 07:55 | P.PCN ---
Date of Procedure: 12/02/18 Procedure(s) Performed: PREOPERATIVE DIAGNOSIS:1- Cervical spondylosis with Facet Arthropathy without myelopathy. 2-cervical genic headache POSTOPERATIVE DIAGNOSIS: Same as preop diagnosis PROCEDURES: Radiofrequency thermocoagulation, left C4, C5, C6 medial branch with Fluroscopy Guidence ( 3 levels ) ANESTHESIA: Local with 1% lidocaine 6 ml ; IV sedation with fentanyl 100 mcg , and Versed 2 mg . EBL: Minimal PROCEDURE INDICATION: The patient with neck pain secondary to cervical arthropathy who had more than 50% relief of her pain with previous diagnostic cervical medial branch block. PROCEDURE DESCRIPTION / TECHNIQUE: The patient was seen and identified in the preoperative area. Risks, benefits, complications, and alternatives were discussed with the patient, the patient agreed to proceed with the procedure and signed the consent. IV was started. Vital signs remained stable throughout the procedure. Patient was taken to the OR and time out was completed. The patient was placed in the prone position on the procedure table. A pillow was placed under the patients chest to increase the cervical interlaminar space. The cervical area was prepped and draped in the usual sterile fashion. Critical pause was taken. Vital signs were closely monitored during the procedure. Conscious sedation was used during the procedure to decrease patients anxiety. Using cross-table lateral fluoroscopy, the centroid of the trapezoid of left C4 , C5, and C6 were identified, marked, and localized with 1% lidocaine. Subsequently, a [id number] radiofrequency cannula with a 10-mm active tip was advanced guided by fluoroscopy to the centroid of the trapezoid of left C4 , C5, and C6 . Needle tip position was confirmed at the centroid of the trapezoids of the left C4, C5, and C6 with anteroposterior fluoroscopy. Each site then underwent sensory testing at 50 Hz and 0 to 1 volt and motor testing at 2 Hz and 0 to 3 volt with local stimulation, but no radicular symptoms down the arm. Thereafter the left C4, C5 and C6 sites underwent radiofrequency thermocoagulation at 80 degrees celsius for 90 seconds after injecting 0.5 ml of PF lidocaine 1%. After thermocoagulation, 1 ml of the block solution containing Dexamethasone 20 mg and 3 mL of preservative-free normal saline was injected at the left C4, C5, and C6 levels after negative aspiration of CSF and blood and with no paresthesias. Cannulas were retracted while injecting lidocaine 1% until the needle is out. Skin was cleansed and bandages were applied. COMPLICATIONS: No acute complications. DISPOSITION / PLANS: The patient was placed in a supine position and transferred to the recovery area in a stable condition for observation and was discharged from the recovery room after meeting discharge criteria. Home discharge instructions given to the patient by the staff. The patient was reexamined prior to discharge. The patient will schedule a follow up in the clinic in 2-4 weeks.
[2018-12-02] MEDS ORDERED: IV FLUID CONTINUATION 550 ML IV ONE (08:00)
[2018-12-02 08:08] VITALS: RESP 18
[2018-12-02 08:25] VITALS: BP 118/79; PULSE 57
--- NOTE | 2018-12-02 08:57 | FL ---
EXAMINATION TYPE: FL guided pain mgmt statistic DATE OF EXAM: 12/02/2018 CLINICAL HISTORY: Neck pain. TECHNIQUE: Fluoroscopy. COMPARISON: None. FINDINGS: Fluoroscopic guidance was provided during pain relief procedure performed by Dr. Cervantes . A total of 20 seconds of fluoroscopic time was utilized during the procedure and 3 spot images are acquired. Images acquired shows needle localization of the cervical spine multiple levels. IMPRESSION: As Above.
== END 2018-12-02 08:35 | disposition home or self-care (01) ==
LOC: ORPAIN 06:20
PROVIDERS: ATTEND Specialist
DX: M47.812 Spondylosis without myelopathy or radiculopathy, cervical region (principal); G44.89 Other headache syndrome; Z79.1 Long term (current) use of non-steroidal anti-inflammatories (NSAID)
CPT/HCPCS: 64633; 64634; J2250; J1100; J3010; 99152; 99153

== ENCOUNTER → 2018-12-30 | Outpatient (CLI) | payer OTHER ==
[2018-12-30 14:04] VITALS: BP 135/80; PULSE 52; RESP 16; TEMP 97.8
--- NOTE | 2018-12-30 14:20 | P.PN ---
Progress Note - Text Progress Note Date: 12/30/18 48-year-old male who presents for follow-up after bilateral radio pharmacy ablation of the cervical spine C4-C5, C5-C6. He does note some relief greater than 60% bilaterally. He did have relief of his right shoulder pain for 4 weeks after the procedure however he did state that pain has returned in the posterior aspect of the shoulder and into the triceps muscle. I reviewed his cervical MRI that showed that he had a broad-based disc bulge at C5-C6 which could account for that radiating pain. He does describe some numbness and tingling along his tricep muscles intermittently. VAS today is a 2 out of 10 in severity, he does have complaints of the right shoulder pain however. In addition to above, 13-point review of systems is also negative for chest pain , shortness of breath, changes in vision, changes in hearing, new onset weakness , abdominal pain, diarrhea, extreme fatigue, malaise, fever, skin changes, homicidal or suicidal ideation, or bowel or bladder incontinence. Vital Signs: Reviewed in EMR General: Awake and alert oriented 3 no distress Respiratory exam: No audible wheezing no accessory muscle usage Cardiovascular exam: regular rate, palpable bilateral pulses, no lower extremity edema Abdominal exam: No distention nontender to palpation Cervical spine: Normal alignment, facet loading is negative tenderness to palpation bilateral paraspinal muscles. Lumbar spine: Loss of lumbar lordosis, normal alignment, tender to palpation over bilateral paraspinal muscles, facet loading is positive bilaterally. Straight leg raise is negative. Sacroiliac joints: Nontender to palpation, JC is negative, Gaenselon negative Neuro exam: Normal sensation in bilateral upper extremities, deep tendon reflexes are 2+ bilateral upper extremities. Normal sensation in bilateral lower extremities. Deep tendon reflexes are 2+ in lower extremities Psych exam: Cooperative, appropriate mood Imaging: MRIs of cervical spine and lumbar spine were reviewed. Patient does have broad-based disc bulge at C5-C6 with some complaints of numbness and tingling in his extremities. Also L5-S1 disc degeneration without any radicular signs or symptoms. Assessment: 1. Cervical spondylosis without myelopathy 2. Myofascial pain 3. Opioid dependence Plan: 1. Explanation: Opioid and psychological risk scores were reviewed. Diagnoses , prognoses, and multiple treatment options including but not limited to physical therapy, interventional therapies, adjuvant medical therapies, narcotic medication therapies, and surgery were discussed with the patient and all questions were answered to the patient's satisfaction. 2. Opioid agreement: 3. Counseling: The patient was counseled extensively on SMOKING CESSATION, BODY MASS INDEX, EXERCISE. Specifically, the patient was instructed regarding the importance of smoking cessation, obesity, and exercise in the context of both chronic pain and overall health. 4. Procedures: 5. Consultations: None 6. Investigations: MRI right shoulder 7. Medications: None 8. Disposition: f/u for procedure as scheduled, review MRI of the shoulder and there is no pathological reasons for his right shoulder pain consider a right C7 -T1 epidural steroid injection. PQRS measures: 1-Patient's medications are documented in the chart. 2-Tobacco use is positive, counseling given 3-Patient has not had a pneumococcal vaccine. 4-Advanced care planning discussed, patient unable to give. 5-Opioid contract signed with the patient. 6-Pain positive, follow-up visit or procedure scheduled 7-Patient's blood pressure measured and documented, and WNL. 8-Patient's weight was measured, and body mass index ABOVE the normal limits, and counseling was done. Patient instructed to follow up with PCP. 9-Patient WAS NOT identified as an unhealthy alcohol user.
== END ==
LOC: PNWHC3 13:13
PROVIDERS: ATTEND Anesthesiology
DX: Z09 Encounter for follow-up examination after completed treatment for conditions other than malignant neoplasm (principal); M47.812 Spondylosis without myelopathy or radiculopathy, cervical region; M79.18 Myalgia, other site; F11.20 Opioid dependence, uncomplicated; Z72.0 Tobacco use
CPT/HCPCS: 99211

== ENCOUNTER → 2019-01-03 | Outpatient (CLI) | payer OTHER ==
--- NOTE | 2019-01-04 19:08 | MR ---
EXAMINATION TYPE: MR shoulder RT wo con DATE OF EXAM: 01/03/2019 COMPARISON: None HISTORY: Rt Shoulder pain TECHNIQUE: Multiplanar, multisequence imaging of the right shoulder is performed without contrast. FINDINGS: There is mild shoulder joint effusion. Subscapularis tendon appears intact. Biceps tendon is intact. The glenoid daniel appear intact. There are some spurring at the AC joint. There is spurring of the in ferior surface at the AC joint and impingement on the supraspinatus tendon and muscle. There is incre ased signal in the supraspinatus tendon that measures 8 mm over the humeral head related to full-thic kness tear. I see no bony destructive process. There is no evidence of a fracture. IMPRESSION: There is a full-thickness tear of the rotator cuff supraspinatus tendon at the superior aspect of the humeral head. Moderate spurring at the AC joint with subacromial impingement. No fracture. Mild shoulder joint effu ludivina consistent with a nonspecific synovitis.
== END | disposition home or self-care (01) ==
LOC: RADMRIMAIN 18:33
PROVIDERS: ATTEND Anesthesiology
DX: M75.121 Complete rotator cuff tear or rupture of right shoulder, not specified as traumatic (principal); M25.811 Other specified joint disorders, right shoulder; M25.411 Effusion, right shoulder

== ENCOUNTER → 2019-02-03 | Outpatient (CLI) | payer OTHER ==
[2019-02-03 11:37] VITALS: BP 128/56; PULSE 59; RESP 18
--- NOTE | 2019-02-03 12:00 | P.PN ---
Progress Note - Text Progress Note Date: 02/03/19 48-year-old male who presents for follow-up after getting a right shoulder MRI. MRI shows a full-thickness supraspinatus tear. Also moderate impingement of the acromial clavicular site. He complains of pain in the shoulder radiating down his arm with some numbness and tingling. VAS today is a 4 out of 10 in severity. Still noticing significant benefit from the cervical radio frequency ablation. I reviewed his cervical MRI that showed that he had a broad-based disc bulge at C5-C6 which could account for that radiating pain. He does describe some numbness and tingling along his tricep muscles intermittently. In addition to above, 13-point review of systems is also negative for chest pain, shortness of breath, changes in vision, changes in hearing, new onset weakness, abdominal pain, diarrhea, extreme fatigue, malaise, fever, skin changes, homicidal or suicidal ideation, or bowel or bladder incontinence. Vital Signs: Reviewed in EMR General: Awake and alert oriented 3 no distress Respiratory exam: No audible wheezing no accessory muscle usage Cardiovascular exam: regular rate, palpable bilateral pulses, no lower extremity edema Abdominal exam: No distention nontender to palpation Cervical spine: Normal alignment, facet loading is negative tenderness to pa lpation bilateral paraspinal muscles. Positive Neer's test decreased external rotation in the right shoulder. Positive impingement test, with reproduction of paresthesias in the hand. Lumbar spine: Loss of lumbar lordosis, normal alignment, tender to palpation over bilateral paraspinal muscles, facet loading is positive bilaterally. Straight leg raise is negative. Sacroiliac joints: Nontender to palpation, JC is negative, Gaenselon negative Neuro exam: Normal sensation in bilateral upper extremities, deep tendon reflexes are 2+ bilateral upper extremities. Normal sensation in bilateral lower extremities. Deep tendon reflexes are 2+ in lower extremities Psych exam: Cooperative, appropriate mood Imaging: MRIs of cervical spine and lumbar spine were reviewed. Patient does have broad-based disc bulge at C5-C6 with some complaints of numbness and tingling in his extremities. Also L5-S1 disc degeneration without any radicular signs or symptoms. Assessment: 1. Cervical spondylosis without myelopathy 2. Myofascial pain 3. Opioid dependence 4. Right rotator cuff tear. 5. Impingement syndrome 6. Cervical radicular pain 7. Lumbar radiculopathy Plan: 1. Explanation: Opioid and psychological risk scores were reviewed. Diagnoses, prognoses, and multiple treatment options including but not limited to physical therapy, interventional therapies, adjuvant medical therapies, narcotic medication therapies, and surgery were discussed with the patient and all questions were answered to the patient's satisfaction. 2. Opioid agreement: On file 3. Counseling: Consult with regards to range of motion exercises and strengthening of the right shoulder supraspinous muscle. 4. Procedures: Right acromioclavicular steroid injection. 5. Consultations: Sports medicine referral. 6. Investigations: Right shoulder MRI reviewed in detail with patient. Results discussed a follow-up plan was initiated. 7. Medications: None 8. Disposition: Refer to Dr. Al Lazo for surgical recommendations and evaluation. Return to clinic for injection. Return to clinic in 8 weeks. PQRS measures: 1-Patient's medications are documented in the chart. 2-Tobacco use is negative. 3-Patient has not had a pneumococcal vaccine. 4-Advanced care planning discussed, patient unable to give. 5-Opioid contract signed with the patient. 6-Pain positive, follow-up visit or procedure scheduled 7-Patient's blood pressure measured and documented, and WNL. 8-Patient's weight was measured, and body mass index is within normal limits, and counseling was done. Patient instructed to follow up with PCP. 9-Patient WAS NOT identified as an unhealthy alcohol user.
== END ==
LOC: PNWHC3 11:27
PROVIDERS: ATTEND Anesthesiology
DX: M47.22 Other spondylosis with radiculopathy, cervical region (principal); M79.18 Myalgia, other site; F11.20 Opioid dependence, uncomplicated; M75.101 Unspecified rotator cuff tear or rupture of right shoulder, not specified as traumatic; M75.40 Impingement syndrome of unspecified shoulder; M54.16 Radiculopathy, lumbar region
CPT/HCPCS: 99211

== ENCOUNTER 2019-02-06 05:43 | Day surgery (SDC) | payer OTHER ==
[2019-02-04 14:38] VITALS: BMI 23.9
[2019-02-06 06:19] VITALS: RESP 16; TEMP 97.8
[2019-02-06] MEDS ORDERED: LACTATED RINGERS 1,000 ML IV ONE (06:22)
[2019-02-06] MEDS ORDERED: SODIUM CHLORIDE 0.9% 500 ML 500 ML IV SCH (07:15)
--- NOTE | 2019-02-06 07:15 | P.PCN ---
Date of Procedure: 02/06/19 Surgeon: Kevin Calloway Description of Procedure: Preoperative diagnoses = left shoulder rotator cuff tear Postoperative diagnoses= same as preoperative diagnosis. Procedure= left intra-articular shoulder injection with fluoroscopy Anesthesia= local anesthetic with lidocaine 1% Procedure indication= patient with a history of severe left shoulder pain secondary to osteoarthritis which is not responsive to the conservative treatment. Description of the procedure= patient was seen and identified in the preoperative holding area, risk and benefits , complications ,and alternatives of the procedure were discussed with the patient and patient agreed with the preceding, patient signed the consent. The patient was taken to the operating room and placed in supine position the groin area was prepped with chlorhexidine 3 and draped with the standard fashion. A 25-gauge needle was introduced into the skin and subcutaneous tissue and then progressed into the intra-articular space. This is confirmed with fluoroscopy. After negative aspiration, a solution containing 3 mL of 0.25% bupivacaine and 40 mg of Kenalog was injected. Complications= there was no acute complication identified. Disposition= patient was placed advanced supine position and transferred to recovery room in stable condition for observation and was discharged home after meeting discharge criteria, and discharge instruction was given and patient will follow up in the pain clinic in a few weeks.
[2019-02-06] MEDS ORDERED: IV FLUID CONTINUATION 1,000 ML IV ONE (07:23)
[2019-02-06 07:31] VITALS: BP 142/92; PULSE 49
--- NOTE | 2019-02-06 08:42 | FL ---
EXAMINATION TYPE: FL guided pain mgmt statistic DATE OF EXAM: 02/06/2019 FLUOROSCOPY Fluoroscopy time of 1 seconds was used during right shoulder injection. 1 image/s document/s the pro cedure.
--- NOTE | 2019-02-11 10:08 | CDI ---
Date: 02/11/19 CDS/Lunch Counter Manager Name: Nils Sanderson, IMANI, CCS, COMPUTER AIDED DESIGN DRAFTER Phone: If any questions, call [facility] Adaptive Physical Educator at [phone] Patient Name: Renato Lewis Admit Date: 02/06/19 Discharge Date: 02/06/19 ATTENTION: The [facility] Coding Staff appreciate your assistance in clarifying documentation. Please respond to the clarification below the line at the bottom and electronically sign. The [facility] Coding staff will review the response and follow-up if needed. Please note: Queries are made part of the Legal Health Record. If you have any questions, please contact the Adaptive Physical Educator. Dear Dr. Calloway, In order to capture the correct CPT and diagnosis code(s), please clarify the laterality of the area receiving treatment. Your note states the procedure was performed on the left side, however the fluoroscopy report states an injection was performed on the right side. Also, please clarify the area prepped for treatment as your note states "the groin area was prepped". Thank you for your kind consideration. The correct side for the procedure was the right side. The area prepped and draped was the anterior portion of the patient's right shoulder. Thank you. JOSE RAFAEL
== END 2019-02-06 07:42 | disposition home or self-care (01) ==
LOC: ORPAIN 05:43
PROVIDERS: ATTEND Pain Medicine Pain Medicine
DX: M75.101 Unspecified rotator cuff tear or rupture of right shoulder, not specified as traumatic (principal); M25.811 Other specified joint disorders, right shoulder; M47.22 Other spondylosis with radiculopathy, cervical region; M79.18 Myalgia, other site; M54.16 Radiculopathy, lumbar region; F11.20 Opioid dependence, uncomplicated
CPT/HCPCS: 20610; J3301

== ENCOUNTER → 2019-03-31 | Outpatient (CLI) | payer OTHER ==
[2019-03-31 12:25] VITALS: BP 124/73; PULSE 69; RESP 16
--- NOTE | 2019-03-31 13:03 | P.PN ---
Progress Note - Text Progress Note Date: 03/31/19 48-year-old male who presents for follow-up after right intra-articular joint injection. He had an MRI right shoulder that showed a full-thickness supraspinatus tear. He was evaluated by Dr. Lazo will be doing a repair. He has complaints of left shoulder pain, pain with movement, and some weakness. Denies any impingement syndrome as with the right shoulder. His right shoulder is doing well after the injection with no significant pain or radicular impingement pain. VAS today is a 4 out of 10 in severity. Still noticing significant benefit from the cervical radio frequency ablation. I reviewed his cervical MRI that showed that he had a broad-based disc bulge at C5-C6 which could account for that radiating pain. He does describe some numbness and tingling along his tricep muscles intermittently. In addition to above, 13-point review of systems is also negative for chest pain, shortness of breath, changes in vision, changes in hearing, new onset weakness, abdominal pain, diarrhea, extreme fatigue, malaise, fever, skin changes, homicidal or suicidal ideation, or bowel or bladder incontinence. Vital Signs: Reviewed in EMR General: Awake and alert oriented 3 no distress Respiratory exam: No audible wheezing no accessory muscle usage Cardiovascular exam: regular rate, palpable bilateral pulses, no lower extremity edema Abdominal exam: No distention nontender to palpation Cervical spine: Normal alignment, facet loading is negative tenderness to pal pation bilateral paraspinal muscles. Positive Neer's test decreased external rotation in the right shoulder. Negative impingement and bilateral shoulders. Tender to palpation along bilateral acromioclavicular joints. Decreased range of motion of abduction in the left greater than right. No overt muscle weakness present. Reflexes are equal and symmetric bilateral upper extremity. Lumbar spine: Loss of lumbar lordosis, normal alignment, tender to palpation over bilateral paraspinal muscles, facet loading is positive bilaterally. Straight leg raise is negative. Sacroiliac joints: Nontender to palpation, JC is negative, Gaenselon negative Neuro exam: Normal sensation in bilateral upper extremities, deep tendon reflexes are 2+ bilateral upper extremities. Normal sensation in bilateral lower extremities. Deep tendon reflexes are 2+ in lower extremities Psych exam: Cooperative, appropriate mood Imaging: MRIs of cervical spine and lumbar spine were reviewed. Patient does have broad-based disc bulge at C5-C6 with some complaints of numbness and tingling in his extremities. Also L5-S1 disc degeneration without any radicular signs or symptoms. Assessment: 1. Cervical spondylosis without myelopathy 2. Myofascial pain 3. Opioid dependence 4. Right rotator cuff tear. 5. Impingement syndrome 6. Cervical radicular pain 7. Lumbar radiculopathy Plan: 1. Explanation: Opioid and psychological risk scores were reviewed. Diagnoses, prognoses, and multiple treatment options including but not limited to physical therapy, interventional therapies, adjuvant medical therapies, narcotic medication therapies, and surgery were discussed with the patient and all questions were answered to the patient's satisfaction. 2. Opioid agreement: On file 3. Counseling: None. 4. Procedures: Left acromioclavicular steroid injection. 5. Consultations: Will consider referral to division operations specialist to evaluate C5-C6 numbness and tingling in the future. Patient wants to hold off and getting evaluated for that at the moment. 6. Investigations: Right shoulder MRI reviewed in detail with patient. Results discussed a follow-up plan was initiated. 7. Medications: None 8. Disposition: Will return for left subacromial bursa injection. PQRS measures: 1-Patient's medications are documented in the chart. 2-Tobacco use is negative. 3-Patient has not had a pneumococcal vaccine. 4-Advanced care planning discussed, patient unable to give. 5-Opioid contract signed with the patient. 6-Pain positive, follow-up visit or procedure scheduled 7-Patient's blood pressure measured and documented, and WNL. 8-Patient's weight was measured, and body mass index is within normal limits, and counseling was done. Patient instructed to follow up with PCP. 9-Patient WAS NOT identified as an unhealthy alcohol user.
== END | disposition home or self-care (01) ==
LOC: PNWHC3 11:47
PROVIDERS: ATTEND Anesthesiology
DX: M75.101 Unspecified rotator cuff tear or rupture of right shoulder, not specified as traumatic (principal); M47.22 Other spondylosis with radiculopathy, cervical region; M54.16 Radiculopathy, lumbar region; M79.18 Myalgia, other site; M75.40 Impingement syndrome of unspecified shoulder; F11.20 Opioid dependence, uncomplicated
CPT/HCPCS: 99211

== ENCOUNTER 2019-04-07 08:37 | Day surgery (SDC) | payer OTHER ==
[2019-04-04 12:06] VITALS: BMI 23.6
[~2019-04-07 08:37] MED LIST changes: +LACTATED RINGERS 1,000 ML IV SCH; -SODIUM CHLORIDE 0.9% 500 ML 500 ML IV SCH
[2019-04-07 09:45] VITALS: RESP 16; TEMP 97.2
--- NOTE | 2019-04-07 10:31 | P.PCN ---
Date of Procedure: 04/07/19 Procedure(s) Performed: Preoperative diagnoses = 1-Right shoulder rotator cuff tear. 2-. right Shoulder arthralgia Postoperative diagnoses= same as preoperative diagnosis. Procedure= Right intra-articular shoulder injection with fluoroscopy Anesthesia= local anesthetic with lidocaine 1% Procedure indication= patient with a history of severe Right shoulder pain secondary to osteoarthritis which is not responsive to the conservative treatment. Description of the procedure= patient was seen and identified in the preoperative holding area, risk and benefits , complications ,and alternatives of the procedure were discussed with the patient and patient agreed with the preceding, patient signed the consent. The patient was taken to the operating room and placed in supine position the groin area was prepped with chlorhexidine 3 and draped with the standard fashion. A 25-gauge needle was introduced into the skin and subcutaneous tissue and then progressed into the intra-articular space. This is confirmed with fluoroscopy. After negative aspiration, a solution containing 4 mL of 0.5% bupivacaine and 40 mg of Depo-Medrol was injected. Complications= there was no acute complication identified. Disposition= patient was placed advanced supine position and transferred to recovery room in stable condition for observation and was discharged home after meeting discharge criteria, and discharge instruction was given and patient will follow up in the pain clinic in a few weeks. note = patient was scheduled to have left shoulder bursa injection, in the preop holding area ,he reported that he had 0 pain on the left shoulder, and his pain mainly on the right shoulder , and he had pain with the initial movement , for this reason we changed the procedure to the right shoulder injection
--- NOTE | 2019-04-07 10:34 | FL ---
EXAMINATION TYPE: FL guided pain mgmt statistic DATE OF EXAM: 04/07/2019 HISTORY: Flouroscopy time 1 seconds of fluoroscopy provided. IMPRESSION: 1. Fluoroscopy time.
[2019-04-07 10:43] VITALS: BP 138/87; PULSE 63
[2019-04-07] MEDS ORDERED: IV FLUID CONTINUATION 1,000 ML IV ONE (10:52)
== END 2019-04-07 10:53 | disposition home or self-care (01) ==
LOC: ORPAIN 08:37
PROVIDERS: ATTEND Specialist
DX: M75.101 Unspecified rotator cuff tear or rupture of right shoulder, not specified as traumatic (principal); Z88.6 Allergy status to analgesic agent
CPT/HCPCS: 20610; J1030

== ENCOUNTER → 2019-12-02 | Outpatient (CLI) | payer OTHER ==
[2019-12-02 13:35] VITALS: RESP 16
[2019-12-02 13:43] VITALS: BP 107/69; PULSE 65
--- NOTE | 2019-12-02 21:08 | P.PAINPG ---
Subjective Progress Note Date: 12/02/19 This is a follow-up visit for 49 years old male with a history of neck pain and is diagnosed with cervical spondylosis with cervical facet arthropathy, and also patient had bilateral shoulder pain, he had bilateral partial tear of rotator cuff, previously we have done radiofrequency thermocoagulation of the median branch cervical area which was done more than a year ago and he gets excellent pain relief after the radiofrequency, currently is complaining of increased neck pain, which is increased with any activity especially neck movement, he denies any motor or sensory deficit he denies any fever or night sweats with aneurysmal change in the bowel movement or urination, he continued to use NSAID/daypro when necessary twice a day, and Ultram 50 mg when necessary, he denies any side effects of the medication and is getting prescription refills from his primary care Objective - Vital Signs Vital signs: Vital Signs Temp Pulse 65 12/02/19 13:27 Resp 16 12/02/19 13:27 BP 107/69 12/02/19 13:27 Pulse Ox 99 12/02/19 13:27 - Exam Physical Examinations : -Constitutiona : Cooperative , not in acute distress . -HEENT : nech : supple , no Lymphadenopathy , normal thyroid size . : eyes : no ptosis , no icterus, no photophobia . - neurologic : Cranial nerve II to XII intact , no focal neurological deffecit . -psychatric : alert , oriented X 3 , appropriate affect , intact judgment and insight . -Lymphatic : no Lymphadenopathy . - musculoskeltal : Cervical Spine motor stregnth in the deltoid and biceps, normal right side , normal Left side motor stregnth biceps and the wrist extensors normal right side ,normal left side . motor stregnth in the triceps muscle . normal Right side , normal Left side deep tendon reflexes normal at the biceps , normal at Brachioradialis , normal at triceps. cervical facet loading test: Positive Bilaterally Spurling test positive bilaterally. Limited ability to abduct and lateral rotation of the upper extremity at shoulder joint Lumber spine moter stegnth lower extremities ,thigh and legs 5/5 Right side , 5/5 Left side Assessment and Plan Plan: Assessment and plan=1 chronic shoulder pain secondary to bilateral shoulder rotator cuff tear. 2-chronic neck pain secondary to cervical spondylosis with cervical facet arthropathy, Patient had excellent pain relief after radiofrequency ablation of the medial branch cervical area a patient will be scheduled to have RFA of the right side C4 , C5 ,and C6 ,and later on we will do the left-sided Time with Patient: Less than 30 PQRS Measure Charge Sheet Measure #130: Documentation of Current Meds in Medical Chart: Patient's medications documented in chart Measure #226: Tobacco Use: Screen & Cessation Intervention: Pt not a tobacco user Measure #111: Pneumonia Vaccination: Pneumococcal vaccine NOT administered or previously given Measure #47: Advance Care Plan: Advance care planning discussed & documented, pt chose/unable to give Measure #412: Opioid Treatment Agreement: No documentation of signed opioid treatment agreement Measure #408: Opioid Therapy Follow-up Evaluation: Patient had NO f/u eval minimum every 3 months during opioid therapy Measure #317: Preventitive Care & Scrn High Bld Press & F/U: Normal blood pressure, f/u not required Measure #128: Body Mass Index (BMI) Screening & Follow-up: BMI documented within normal parameters Measure #131: Pain Assessment & Follow-up: Pain positive & plan documented, Follow-up scheduled Measure #431: Unhealthy Alcohol Use Preventative Care & Scrn: Patient not identified as an unhealthy alcohol user PQRS Narrative: Smoking Status Former smoker Blood Pressure 107/69 Pain Intensity [Bilateral 4 Posterior Neck] Pain Intensity [Back] 2 Scale Used Numeric (1 - 10) Hx Alcohol Use (MH) No Home Medications: Ambulatory Orders Citalopram Hydrobromide [CeleXA] 40 mg PO DAILY 02/04/16 amLODIPine [Norvasc] 10 mg PO DAILY 02/04/16 Diazepam 10 mg PO TID PRN 02/16/16 traMADol HCL [Ultram] 100 mg PO Q4HR PRN 02/08/17 Oxaprozin [Daypro] 600 tab PO BID PRN 02/03/19 Controlled Substance Measures - Controlled Substance Measures Is patient prescribed a controlled substance at discharge?: No
== END | disposition home or self-care (01) ==
LOC: PNWHC3 13:17
PROVIDERS: ATTEND Specialist
DX: G89.29 Other chronic pain (principal); M75.102 Unspecified rotator cuff tear or rupture of left shoulder, not specified as traumatic; M75.101 Unspecified rotator cuff tear or rupture of right shoulder, not specified as traumatic; M47.812 Spondylosis without myelopathy or radiculopathy, cervical region; M46.92 Unspecified inflammatory spondylopathy, cervical region; Z98.890 Other specified postprocedural states; Z87.891 Personal history of nicotine dependence; Z79.891 Long term (current) use of opiate analgesic; Z79.1 Long term (current) use of non-steroidal anti-inflammatories (NSAID)
CPT/HCPCS: 99211

== ENCOUNTER 2019-12-16 06:36 | Day surgery (SDC) | payer OTHER ==
[2019-12-12 09:28] VITALS: BMI 22.1
[~2019-12-16 06:36] MED LIST changes: +LIDOCAINE 4% (PF) 5 ML AMP ONE; +MIDAZOLAM 2 MG/2 ML VIAL ONE; +fentaNYL (PF) 50 MCG/ML 2 ML AMP ONE
[2019-12-16 06:53] VITALS: TEMP 97.6
[2019-12-16] MEDS ORDERED: LIDOCAINE 1% (10MG/ML) FOR IV START INTRADERMA ONE (06:56)
[2019-12-16 07:07] LABS: Glucose,Whole Blood 107 mg/dL (75-99)
[2019-12-16] MEDS ORDERED: IV FLUID CONTINUATION 600 ML IV ONE (08:06)
[2019-12-16 08:27] VITALS: BP 117/76; PULSE 56; RESP 20
--- NOTE | 2019-12-16 08:35 | FL ---
Fluoroscopy HISTORY: Pain 9 seconds fluoroscopy time supplied to the referring clinician. 4 intraoperative C-arm images docume nt the procedure. See dictated report from anesthesia.
--- NOTE | 2019-12-16 08:36 | P.PCN ---
Date of Procedure: 12/16/19 Procedure(s) Performed: PREOPERATIVE DIAGNOSIS: Cervical spondylosis POSTOPERATIVE DIAGNOSIS: Same PROCEDURES: Radiofrequency thermocoagulation of the C4, C5, C6 medial branches with fluoroscopic guidance on the right side for facets C4-5 and C5-6 SURGEON: Jayden Arreguin M.D. ANESTHESIA: Moderate sedation with intravenous versed and fentanyl and local infiltration with lidocaine 1% 5 ml , sedation time 18 minutes Fluoroscopy was used for the procedure and fluoroscopic images were saved to the radiology portion of patient's chart. EBL: Minimal PROCEDURE INDICATION: The patient with low back pain secondary to cervical facet arthropathy who had more than 50% relief of pain with previous diagnostic cervical medial branch block. PROCEDURE DESCRIPTION / TECHNIQUE: The patient was seen and identified in the preoperative area. Risks, benefits, complications, including but not limited to risk of infection ,bleeding , allergic reactions to the medications and incomplete pain relief , and alternatives were discussed with the patient, the patient agreed to proceed with the procedure and signed the consent. IV was started. The operative site was marked. Patient was taken to the OR and time out was completed. The patient was placed in the prone position on the procedure table. The cervical area was prepped and draped in the usual sterile fashion. . Vital signs were closely monitored during the procedure .IV sedation was used during the procedure to decrease patients anxiety. Using AP and lateral fluoroscopy, the waist corresponding to the connection between the superior and transverse articular processes of the above-mentioned levels were identified, marked, and localized with 1% lidocaine. Subsequently, an [id number] radiofrequency cannula with a 10-mm active tip was advanced guided by fluoroscopy to the midpoint of the centroid on the lateral view of the corresponding cervical vertebral bodies at each site then underwent motor testing at 2.5 Hz and 0 to 3 volt with local stimulation, but no radicular symptoms down the arms. Then the sites underwent radiofrequency thermocoagulation at 80 degrees celsius for 90 seconds after injecting 1ml of PF lidocaine 4%. A second round of radiofrequency ablation was performed after pulling each needle back by 1 mm. Cannulas were removed, the skin was cleansed and bandages were applied. COMPLICATIONS: No acute complications. DISPOSITION / PLANS: The patient was placed in a supine position and transferred to the recovery area in a stable condition for observation and was discharged from the recovery room after meeting discharge criteria. Home discharge instructions given to the patient by the staff. The patient will follow up in clinic in 2-4 weeks.
== END 2019-12-16 08:35 | disposition home or self-care (01) ==
LOC: ORPAIN 06:36
PROVIDERS: ATTEND Anesthesiology
DX: G89.29 Other chronic pain (principal); M47.812 Spondylosis without myelopathy or radiculopathy, cervical region; Z87.891 Personal history of nicotine dependence; Z88.8 Allergy status to other drugs, medicaments and biological substances
CPT/HCPCS: 64633; 64634; J2001; J2250; J3010; 99152

== ENCOUNTER → 2019-12-30 | Day surgery (SDC) | payer OTHER ==
[2019-12-29 10:09] VITALS: BMI 23.1
[2019-12-30 09:12] VITALS: RESP 16; TEMP 96.9
[2019-12-30 10:35] VITALS: BP 131/79; PULSE 57
== END ==
LOC: ORPAIN 08:50
PROVIDERS: ATTEND Anesthesiology
DX: M47.812 Spondylosis without myelopathy or radiculopathy, cervical region (principal); N18.9 Chronic kidney disease, unspecified
CPT/HCPCS: 64633; 64634; J2250; J1100; J2001; J3010; 99152

== ENCOUNTER → 2020-01-13 | Outpatient (CLI) | payer OTHER ==
[2020-01-13 12:57] VITALS: BP 99/72; PULSE 80; RESP 18
--- NOTE | 2020-01-13 13:42 | P.PN ---
Subjective Progress Note Date: 01/13/20 This is a 49-year-old gentleman with history of chronic neck and lower back pain and bilateral shoulder pain. The patient had cervical medial branch RFA recently which gave her at least 50% of pain relief as he states today. He does have a history of rotator cuff tear on the right side and he will have surgery on the right shoulder shortly. He does have chronic lower back pain for which he had lumbar medial branch RFA previously. He feels burning sensation in the right thigh laterally from time to time. Patient denies new-onset weakness, bowel/bladder incontinence, or any other signs or symptoms of cauda equina syndrome. There are no signs of acute intoxi cation, and no indications of medication diversion or overuse. In addition to above, 13-point review of systems is also negative for chest pain, shortness of breath, changes in vision, changes in hearing, new onset weakness, abdominal pain, diarrhea, extreme fatigue, malaise, fever, skin changes, homicidal or suicidal ideation, or bowel or bladder incontinence. Vital Signs: Reviewed in EMR Gen: AAOx3, NAD HEENT: PERRLA,hearing grossly normal Pulm: resp unlabored Heart: Regular Neck: supple, trachea midline Neuro exam of the lower extremities: Normal and symmetrical muscle strength and deep tendon reflexes Straight leg raising test: Natanael's test: Range of motion of the lumbar spine: Facet loading test: Tenderness in the paravertebral musculature: Positive on the right side of the spine Neuro: CN II-XII grossly intact, Imaging: Reviewed in EMR/chart Assessment: Cervical spondylosis without myelopathy Right shoulder rotator cuff tear Lumbar spondylosis without adenopathy Plan: 1. Explanation: Opioid and psychological risk scores were reviewed. Diagnoses, prognoses, and multiple treatment options including but not limited to physical therapy, interventional therapies, adjuvant medical therapies, narcotic medication therapies, and surgery were discussed with the patient and all questions were answered to the patient's satisfaction. 2. Opioid agreement: no opioids prescribed 3. Counseling: The patient was counseled extensively on SMOKING CESSATION, BODY MASS INDEX, EXERCISE. Specifically, the patient was instructed regarding the importance of smoking cessation, obesity, and exercise in the context of both chronic pain and overall health. 4. Procedures: None at this point 5. Consultations: The patient will have surgery on the right shoulder 6. Investigations: May need to repeat the MRI on the lumbar spine 7. Medications: None 8. Disposition: Return to clinic as needed 9. Maps were reviewed and were appropriate. PQRS measures: 1-Patient's medications are documented in the chart. 2-Tobacco use is negative, counseling given 3-Patient has not had a pneumococcal vaccine. 4-Advanced care planning discussed, patient unable to give 5-Opioid contract not signed with the patient. 6-Pain positive, follow-up visit or procedure scheduled 7-Patient's blood pressure measured and documented above/ normal limits. The patient will follow up with his primary care physician. 8-Patient's weight was measured, and body mass index ABOVE the normal limits, and counseling was done. Patient instructed to follow up with PCP. 9-Patient WAS NOT identified as an unhealthy alcohol user. Objective - Vital Signs Vital signs: Vital Signs Temp Pulse 80 01/13/20 12:52 Resp 18 01/13/20 12:52 BP 99/72 01/13/20 12:52 Pulse Ox 94 L 01/13/20 12:52
== END | disposition home or self-care (01) ==
LOC: PNWHC3 12:45
PROVIDERS: ATTEND Anesthesiology
DX: G89.29 Other chronic pain (principal); M48.02 Spinal stenosis, cervical region; M75.101 Unspecified rotator cuff tear or rupture of right shoulder, not specified as traumatic; M47.816 Spondylosis without myelopathy or radiculopathy, lumbar region; Z98.890 Other specified postprocedural states
CPT/HCPCS: 99211

== ENCOUNTER → 2020-04-16 | Outpatient (CLI) | payer OTHER ==
[2020-04-16 12:43] LABS: Potassium 4.4 mmol/L (3.5-5.1)
[2020-04-16 12:46] LABS: Basophils # (A) 0.1 k/uL (0-0.2); Basophils % (A) 1 %; Eosinophils # (A) 0.1 k/uL (0-0.7); Eosinophils % (A) 2 %; HCT 40.8 % (39.0-53.0); HGB 13.2 gm/dL (13.0-17.5); Lymphocytes # (A) 1.6 k/uL (1.0-4.8); Lymphocytes % (A) 32 %; MCH 29.9 pg (25.0-35.0); MCHC 32.3 g/dL (31.0-37.0); MCV 92.5 fL (80.0-100.0); Mean Platelet Volume 7.4; Monocytes # (A) 0.3 k/uL (0-1.0); Monocytes % (A) 6 %; Neutrophils # (A) 2.7 k/uL (1.3-7.7); Neutrophils % (A) 56 %; Platelet Count 237 k/uL (150-450); RBC 4.41 m/uL (4.30-5.90); RDW 12.3 % (11.5-15.5); WBC 4.9 k/uL (3.8-10.6)
== END | disposition home or self-care (01) ==
LOC: LABPAT 11:23
PROVIDERS: ATTEND Orthopaedic Surgery
DX: Z01.818 Encounter for other preprocedural examination (principal); M75.41 Impingement syndrome of right shoulder
CPT/HCPCS: 36415; 80051; 85025; 93005

== ENCOUNTER → 2020-04-20 | Outpatient (CLI) | payer OTHER | END | disposition home or self-care (01) | LOC: LABWHC1 11:21 | PROVIDERS: ATTEND Surgery Plastic and Reconstructive Surgery | DX: Z11.59 Encounter for screening for other viral diseases (principal) ==

== ENCOUNTER 2020-04-22 07:56 | Day surgery (SDC) | payer OTHER ==
[2020-04-21 09:59] VITALS: BMI 21.6
--- NOTE | 2020-04-21 14:04 | HP ---
HISTORY AND PHYSICAL DATE OF SURGERY: 04/22/2020 Renato Lewis is a 50-year-old patient seen with progressive right shoulder pain. Treatment options discussed. He elected to proceed with arthroscopy. Consent was obtained. PAST MEDICAL HISTORY: Hypertension, depression. PAST SURGICAL HISTORY: Noncontributory. MEDICATIONS: Amlodipine, Celexa, lisinopril, tramadol. ALLERGIES: None. SOCIAL HISTORY: He denies current tobacco use. PHYSICAL EVALUATION OF THE RIGHT SHOULDER: Flexion 170 degrees, abduction 160 degrees, external rotation is 50 degrees with pain and weakness. Tenderness along the anterior lateral acromion and rotator cuff insertion site. Impingement sign is positive at 90 degrees. Drop-arm sign positive. Distal neurovascular exam is intact. RADIOGRAPHS: Right shoulder revealed a type 2 anterior acromion, evidence for acromioclavicular joint osteoarthritis. A right shoulder MRI revealed impingement, acromioclavicular joint osteoarthritis and rotator cuff tendon tear. IMPRESSION: 1. Right shoulder impingement with rotator cuff tear. 2. Right shoulder acromioclavicular joint osteoarthritis. 3. Hypertension. PLAN: Right shoulder arthroscopy with subacromial decompression, probable arthroscopic rotator cuff repair, Pranay procedure and debridement. MMODL / IJN: [id number] /
[~2020-04-22 07:56] MED LIST changes: +DEXAMETHASONE SOD PHOSPHATE 10 MG/ML 1 ML VIAL IV ONE; +HYDROmorphone 0.5 MG/0.5 ML SYRINGE IVP PRN; -LIDOCAINE 4% (PF) 5 ML AMP ONE; +MIDAZOLAM 2 MG/2 ML VIAL IV PRN; -MIDAZOLAM 2 MG/2 ML VIAL ONE; +ONDANSETRON 4 MG/2 ML VIAL IVP ONE; -fentaNYL (PF) 50 MCG/ML 2 ML AMP ONE
[2020-04-22] MEDS ORDERED: LIDOCAINE 1% (10MG/ML) FOR IV START INTRADERMA ONE (08:40)
[2020-04-22] MEDS ORDERED: MIDAZOLAM 2 MG/2 ML VIAL IV ONE (08:56)
[2020-04-22] MEDS ORDERED: GLYCOPYRROLATE 0.2 MG/ML 2 ML VIAL ONE (09:25)
[2020-04-22] MEDS ORDERED: ROPIVACAINE 5 MG/ML 30 ML VIAL ONE (09:25)
[2020-04-22] MEDS ORDERED: LIDOCAINE 1% INJ 10MG/ML (20 ML MDV) ONE (09:25)
[2020-04-22] MEDS ORDERED: PROPOFOL 10 MG/ML 20 ML VIAL IV ONE (09:25)
[2020-04-22] MEDS ORDERED: SUCCINYLCHOLINE CHLORIDE 100 MG/5 ML SYR IV ONE (09:25)
[2020-04-22] MEDS ORDERED: DEXAMETHASONE SOD PHOSPHATE 4 MG/ML 1 ML VIAL ONE (09:25)
[2020-04-22] MEDS ORDERED: fentaNYL (PF) 50 MCG/ML 2 ML AMP ONE (09:25)
--- NOTE | 2020-04-22 10:52 | P.OP ---
Date of Procedure: 04/22/20 Preoperative Diagnosis: Right shoulder impingement Postoperative Diagnosis: 1. Right shoulder rotator cuff tear 2. Right shoulder impingement 3. Right shoulder acromioclavicular joint osteoarthritis 4. Right shoulder partial long head biceps tendon tear Procedure(s) Performed: 1. Right shoulder arthroscopic rotator cuff repair 2. Right shoulder arthroscopic subacromial decompression 3. Right shoulder arthroscopic Pranay procedure 4. Right shoulder arthroscopic biceps tenotomy Implants: 14.75 Arthrex swivel lock anchors Anesthesia: GETA, regional (Interscalene block) Surgeon: Al Lazo Crank Hand #1: Jaret Fallon Estimated Blood Loss (ml): 9 Pathology: none sent Condition: stable Disposition: PACU Indications for Procedure: 50-year-old patient seen with progressive right shoulder pain. After treatment options were discussed, he elected to proceed with arthroscopy. Operative Findings: See description of procedure Description of Procedure: Patient underwent an interscalene block by department of anesthesia. The patient was then taken to the operative suite. The patient underwent a general anesthetic by the department of anesthesia. The patient was placed into a lateral position and secured. There was appropriate padding of the bony prominence. Right shoulder was then prepped and draped in normal sterile orthopedic fashion. We placed the extremity in 10 pounds of longitudinal traction. A posterior incision was now made for a posterior working portal site. The trocar and cannula were inserted into the glenohumeral joint. Arthroscopy was initiated. Spinal needle was now inserted anteriorly, to ascertain the anterior working portal site. An incision was now made in that area, a trocar was inserted followed by a probe. There was some mild superficial fraying of the anterior labrum. There was some hyperemia and partial tearing long head biceps tendon. The remainder labrum appeared stable. There was no significant chondromalacia present. I performed a arthroscopic biceps tenotomy. I again probed the labrum and it was stable. Instruments now removed from glenohumeral joint. Utilizing the posterior working portal site, the trocar and cannula were inserted into the subacromial space. Arthroscopy initiated. I made an incision 2 fingerbreadths lateral to the acromion. I introduced my trocar followed by my ArthroCare ablator. I now began ablating thick subacromial bursal tissue, which exposed the undersurface of the anterior acromion. There was diminished subacromial space. There was a very prominent anterior acromion. A motorized bur was introduced and a subacromial decompression was performed. I also excised some osteophytes off the inferior aspect of the distal clavicle. The AC joint was visualized and noted to be fairly arthritic. The motorized bur was introduced in the anterior portal site and a Pranay procedure was performed without difficulty, decompressing the AC joint nicely. I turned my attention to the rotator cuff. There was some superficial tearing along the anterior distal supraspinatus area. Upon probing the area I did note a full-thickness defect/tear. I debrided those margins getting down to stable tendon tissue. The defect/tear measured 11.5 cm. I abraded the footprint with a motorized bur. I passed 2 everted mattress sutures through good bites of rotator cuff ten don. I punched a hole in the area the footprint for insertion of anchor. All 4 limbs of suture were passed through the eyelet of a 4.75 Arthrex swivel lock anchor. The eyelet was now placed into a pre-punch hole. Merrick JAEGER tensioned all 4 suture limbs and then deployed the anchor with good fixation noted. All residual suture limbs were now clipped. We had good compression of the tendon along the entire footprint. I injected 1 mL Renyte intra-articular. Instruments now removed from the portal sites. All portal sites were approximated with nylon suture. Sterile dressings were applied followed by a shoulder sling. Jaret JAEGER assisted in this complex case. The patient was awakened, transferred to a bed, and taken to recovery in stable condition.
[2020-04-22 10:53] VITALS: TEMP 96.7
[2020-04-22] MEDS ORDERED: LACTATED RINGERS 1,000 ML IV ONE (11:24)
[2020-04-22 12:03] VITALS: BP 93/58; PULSE 58; RESP 16
--- NOTE | 2020-04-22 17:15 | P.ANPRN ---
Procedure Note - Anesthesia - Nerve Block Performed Right Interscalene Single Time Out Performed: Yes Date of Procedure: 04/22/20 Procedure Start Time: 08:55 Procedure Stop Time: 09:00 Location of Patient: PreOp Indication: Acute Post-Operative Pain, Requested by Surgeon Sedation Type: Sedate with meaningful contact maintained Preparation: Sterile Prep Position: Supine Needle Types: Pajunk Needle Gauge: 21 Ultrasound used to visualize needle placement: Yes Ultrasound used to observe medication spread: Yes Blood Aspirated: No Pain Paresthesia on Injection Noted: No Resistance on Injection: Normal Image Stored and Saved: Yes Events: Uneventful and Well Tolerated (ropi .5% 30cc plus dexamethasone 4mg)
== END 2020-04-22 12:25 | disposition home or self-care (01) ==
LOC: OR 07:56
PROVIDERS: ATTEND Orthopaedic Surgery
DX: M75.101 Unspecified rotator cuff tear or rupture of right shoulder, not specified as traumatic (principal); M25.811 Other specified joint disorders, right shoulder; M19.011 Primary osteoarthritis, right shoulder; S46.111A Strain of muscle, fascia and tendon of long head of biceps, right arm, initial encounter; I10 Essential (primary) hypertension; M25.711 Osteophyte, right shoulder; F32.9 Major depressive disorder, single episode, unspecified; F41.9 Anxiety disorder, unspecified; Z79.899 Other long term (current) drug therapy; Z79.891 Long term (current) use of opiate analgesic; X58.XXXA Exposure to other specified factors, initial encounter
CPT/HCPCS: 64415; 76942; 29827; 29826; 29824; C1713; Q4212; J2250; J1100 ×2; J0690; J2405; J2001; J3010; J2795; J0330; J2704

== ENCOUNTER 2020-09-04 11:34 | Emergency (ER) | payer MEDICARE, OTHER ==
[2020-09-04 11:41] VITALS: BP 119/76; PULSE 60; RESP 18; TEMP 98.8
[2020-09-04] MEDS ORDERED: DEXAMETHASONE SOD PHOSPHATE 10 MG/ML 1 ML VIAL IM STA (12:03)
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
== END 2020-09-04 12:30 | disposition home or self-care (01) ==
LOC: EC 11:34
DX: M54.5 Low back pain (principal); M54.2 Cervicalgia; F41.9 Anxiety disorder, unspecified; F32.9 Major depressive disorder, single episode, unspecified; M19.90 Unspecified osteoarthritis, unspecified site; I10 Essential (primary) hypertension; Z79.899 Other long term (current) drug therapy; Z88.6 Allergy status to analgesic agent; Z87.828 Personal history of other (healed) physical injury and trauma
CPT/HCPCS: 99283; 96372; J1100

== ENCOUNTER → 2020-09-08 | Outpatient (CLI) | payer MEDICARE, OTHER ==
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
== END | disposition home or self-care (01) ==
LOC: RADMRIMAIN 20:16
PROVIDERS: ATTEND Orthopaedic Surgery
DX: M48.02 Spinal stenosis, cervical region (principal); M50.30 Other cervical disc degeneration, unspecified cervical region
CPT/HCPCS: 72141

== ENCOUNTER → 2022-05-02 | Outpatient (CLI) | payer MEDICARE ==
--- NOTE | 2022-05-16 10:00 | HM ---
24 hour Holter monitor shows sinus mechanism heart rates ranging from 43-143 bpm, average 62 beats a minute Occasional PACs and PVCs MTDD
== END | disposition home or self-care (01) ==
LOC: RADECHMAIN 12:18
PROVIDERS: ATTEND Family Medicine
DX: R00.0 Tachycardia, unspecified (principal)
CPT/HCPCS: 93225; 93226

== ENCOUNTER → 2024-04-28 | Outpatient (CLI) | payer MEDICARE, OTHER ==
--- NOTE | 2024-04-28 10:52 | XR ---
EXAMINATION TYPE: XR chest 2V DATE OF EXAM: 04/28/2024 COMPARISON: NONE HISTORY: Shortness of breath TECHNIQUE: Frontal and lateral views of the chest are obtained. FINDINGS: Scattered senescent parenchymal changes noted. Hyperinflation compatible with COPD. No evidence for infiltrate. No evidence for atelectasis. Heart size is stable. Mediastinal structures are stable and grossly unremarkable. No evidence for hilar prominence. Degenerative changes dorsal spine. IMPRESSION: 1. No evidence for acute pulmonary disease.
--- NOTE | 2024-04-28 11:13 | XR ---
EXAMINATION TYPE: XR cervical spine limited DATE OF EXAM: 04/28/2024 CLINICAL HISTORY: pain TECHNIQUE: 3 views of the cervical spine are submitted. COMPARISON: None. FINDINGS: There is satisfactory in alignment without evidence of acute fracture or dislocation. The pre-vertebral soft tissue appears within normal limits. Mild multilevel degenerative disc disease. T he C1-C2 articulation is unremarkable on the open mouth view. IMPRESSION: No acute fracture or dislocation is seen in the cervical spine.
== END | disposition home or self-care (01) ==
LOC: RADXRMAIN 10:14
PROVIDERS: ATTEND Family Medicine
DX: M54.2 Cervicalgia (principal); R06.02 Shortness of breath
CPT/HCPCS: 71046; 72040

== ENCOUNTER → 2024-05-05 | Outpatient (CLI) | payer MEDICARE, OTHER ==
--- NOTE | 2024-05-06 07:53 | CA ---
Transthoracic Echo Report Name: Renato Lewis Age: 54 Gender: M : 1970 Exam Date: 05/05/2024 16:57 Exam Location: [facility] Ht (in): 69 Wt (lb): 155 Ordering Physician: Jacob Lewis MD Attending/Referring Phys: Amanda Espinoza [facility] [employer] Mee Allan RDCS Procedure CPT: Indications: R06.02 SHORTNESS OF BREATH Cardiac Hx: Technical Quality: Good Contrast 1: Total Dose (mL): Contrast 2: Total Dose (mL): MEASUREMENTS (Male / Female) Normal Values 2D ECHO LV Diastolic Diameter PLAX 4.7 cm 4.2 - 5.9 / 3.9 - 5.3 cm LV Systolic Diameter PLAX 3.1 cm IVS Diastolic Thickness 0.9 cm 0.6 - 1.0 / 0.6 - 0.9 cm LVPW Diastolic Thickness 0.7 cm 0.6 - 1.0 / 0.6 - 0.9 cm LV Relative Wall Thickness 0.4 LVOT Diameter 2.3 cm LV Diastolic Volume MOD BP 108.6 cm??? 67 - 155 / 56 - 104 cm??? LV Systolic Volume MOD BP 38.9 cm??? 22 - 58 / 19 - 49 cm??? LV Ejection Fraction MOD BP 64.2 % >= 55 % LV Cardiac Index MOD BP 2936.4 cm???/min???m??? LV Diastolic Volume MOD 4C 100.6 cm??? LV Systolic Volume MOD 4C 37.8 cm??? LV Ejection Fraction MOD 4C 62.4 % LV Cardiac Index MOD 4C 2642.9 cm???/min???m??? LV Diastolic Length 4C 8.6 cm LV Systolic Length 4C 7.2 cm LV Diastolic Volume MOD 2C 117.6 cm??? LV Systolic Volume MOD 2C 39.3 cm??? LV Ejection Fraction MOD 2C 66.6 % LV Cardiac Index MOD 2C 3297.7 cm???/min???m??? LV Diastolic Length 2C 8.6 cm LV Systolic Length 2C 7.4 cm LA Volume 25.6 cm??? 18 - 58 / 22 - 52 cm??? LA Volume Index 13.8 cm???/m??? 16 - 28 cm???/m??? Ascending Aorta Diameter 3.0 cm DOPPLER AV Peak Velocity 146.1 cm/s AV Peak Gradient 8.5 mmHg AV Mean Velocity 101.7 cm/s AV Mean Gradient 4.7 mmHg AV Velocity Time Integral 26.5 cm LVOT Peak Velocity 120.0 cm/s LVOT Peak Gradient 5.8 mmHg LVOT Velocity Time Integral 21.7 cm LVOT Stroke Volume 88.4 cm??? LVOT Stroke Volume Index 47.7 ml/m??? LVOT Cardiac Index 3721.4 cm???/min???m??? AV Area Cont Eq vti 3.3 cm??? AV Area Cont Eq pk 3.3 cm??? MV Area PHT 3.9 cm??? Mitral E Point Velocity 74.1 cm/s Mitral A Point Velocity 42.0 cm/s Mitral E to A Ratio 1.8 MV Deceleration Time 194.0 ms TR Peak Velocity 224.2 cm/s TR Peak Gradient 20.1 mmHg Right Atrial Pressure 5.0 mmHg Pulmonary Artery Systolic Pressu 25.1 mmHg Right Ventricular Systolic Press 25.1 mmHg PV Peak Velocity 104.2 cm/s PV Peak Gradient 4.3 mmHg FINDINGS Left Ventricle Left ventricular ejection fraction is estimated at 60-65 %. Left ventricular cavity size normal. Left ventricular wall thickness normal. No obvious regional wall motion abnormalities. Right Ventricle Normal right ventricular size and function. Right Atrium Normal right atrial size. Left Atrium Normal left atrial size. Mitral Valve Structurally normal mitral valve. No mitral stenosis, regurgitation or prolapse. Aortic Valve Trileaflet aortic valve. No aortic valve stenosis or regurgitation. Tricuspid Valve Structurally normal tricuspid valve. No tricuspid stenosis. Trace to mild tricuspid regurgitation. Pulmonic Valve Structurally normal pulmonic valve. No pulmonic stenosis. No pulmonic regurgitation. Pericardium No pericardial effusion. Aorta Normal size aortic root and proximal ascending aorta. CONCLUSIONS Normal LV systolic function Previewed by: Dr. Brennan Bronson MD (Electronically Signed) Final Date: 06 May 2024 07:53
== END | disposition home or self-care (01) ==
LOC: RADECHMAIN 16:55
PROVIDERS: ATTEND Family Medicine
DX: R06.02 Shortness of breath (principal)
CPT/HCPCS: 93306